=== PATIENT | female | born 1955 | race Caucasian/White ===

== ENCOUNTER → 2016-10-04 | Outpatient (CLI) | payer BC ==
[~2016-10-04] MED LIST: CALC-51 PO; CHOL100027 PO; CYAN500T PO; FAMO20TA9 PO; MULT-506 PO; OMEG10007 PO; PYRI50TA8 PO; ZOLE5INJ IV; vitamin b12 PO; vitamin b6 PO; vitamin d PO
== END | disposition home or self-care (01) ==
LOC: C.PAPS 15:27
PROVIDERS: ATTEND Obstetrics & Gynecology
DX: Z01.419 Encounter for gynecological examination (general) (routine) without abnormal findings (principal); Z11.51 Encounter for screening for human papillomavirus (HPV)

== ENCOUNTER → 2016-12-02 | Day surgery (SDC) | payer BC ==
[~2016-12-02] VITALS: Ht 165.1 cm; Wt 70.0 kg
[~2016-12-02] MED LIST changes: -CALC-51 PO; -CHOL100027 PO; -CYAN500T PO; -FAMO20TA9 PO; -PYRI50TA8 PO; -ZOLE5INJ IV; +ZOLEDRONIC ACID INJ 5 MG in EMPTY BAG 0 ML IV SCH
[2016-12-02 08:56] VITALS: BP 158/68; PULSE 64; TEMP 36.2; O2SAT 93; Ht 165.1 cm; Wt 70.0 kg
== END | disposition home or self-care (01) ==
LOC: C.MTU 08:41
PROVIDERS: ATTEND Internal Medicine
DX: M81.0 Age-related osteoporosis without current pathological fracture (principal)

== ENCOUNTER → 2017-02-03 | Outpatient (CLI) | payer BC ==
[~2017-02-03] MED LIST changes: -ZOLEDRONIC ACID INJ 5 MG in EMPTY BAG 0 ML IV SCH
--- NOTE | 2017-02-03 18:00 | DIAGNOSTIC IMAGING REPORT ---
ULTRASOUND RIGHT UPPER QUADRANT ABDOMEN CLINICAL HISTORY: Right upper quadrant abdominal pain. COMPARISON STUDY: Abdominal CT dated 08/22/2006. TECHNIQUE: Real-time, grayscale, and color flow sonography of the right upper quadrant of the abdomen was performed. Images are reviewed in the transverse and longitudinal planes. FINDINGS: Liver: The liver is normal in size and echotexture. There is no intrahepatic biliary ductal dilatation. The main portal vein is patent. Gallbladder: The gallbladder is normal in appearance. No gallstones are identified. There is no gallbladder wall thickening or pericholecystic fluid. A sonographic Lau's sign is reportedly absent. The common bile duct measures up to 0.3 cm in diameter. Pancreas: Visualized portions of the pancreatic head and body are normal in appearance. The splenic vein is patent. Right kidney: Survey images of the right kidney demonstrate normal size and echotexture. There is no hydronephrosis. A small extrarenal pelvis is incidentally noted. Ascites: None. IMPRESSION: Unremarkable sonographic assessment of the right upper quadrant. No gallstones are identified. Electronically signed by: Luis Manuel Patel M.D. 02/03/2017 5:59 PM Dictated Date/Time: 02/03/2017 5:57 PM
== END | disposition home or self-care (01) ==
LOC: C.ULTR 17:23
PROVIDERS: ATTEND Nurse Practitioner
DX: R10.11 Right upper quadrant pain (principal)

== ENCOUNTER → 2017-02-10 | Outpatient (CLI) | payer BC ==
[~2017-02-10] MED LIST changes: +SINCALIDE INJ 1.45 MCG in SODIUM CHLORIDE 0.9% 100ML 100 ML IV SCH
--- NOTE | 2017-02-10 12:36 | DIAGNOSTIC IMAGING REPORT ---
NUCLEAR MEDICINE HEPATOBILIARY SCAN WITH EJECTION FRACTION HISTORY: R10.11 Colicky RUQ abdominal pain with EJECTION [id number] COMPARISON: Abdominal ultrasound 02/03/2017. TECHNIQUE: Immediately following the intravenous administration of 5.3 mCi Tc-99m Choletec, dynamic anterior abdominal imaging pre/post 1.45 mcg of Kinevac was performed. FINDINGS: Uniform hepatic tracer accumulation is shown. Prompt intrahepatic biliary excretion is seen. The gallbladder, common bile duct, and small bowel are all visualized by 40 minutes. This appearance represents the normal sequence of biliary excretion. The gall bladder ejection fraction following administration of Kinevac was 82% (normal >35%). IMPRESSION: 1. No evidence for cystic duct obstruction. 2. Gallbladder ejection fraction calculated to be 82 %. Electronically signed by: David Soto M.D. 02/10/2017 12:35 PM Dictated Date/Time: 02/10/2017 12:34 PM
== END | disposition home or self-care (01) ==
LOC: C.NUCL 10:12
PROVIDERS: ATTEND Internal Medicine
DX: R10.11 Right upper quadrant pain (principal)

== ENCOUNTER → 2017-02-19 | Outpatient (CLI) | payer BC ==
[~2017-02-19] MED LIST changes: -SINCALIDE INJ 1.45 MCG in SODIUM CHLORIDE 0.9% 100ML 100 ML IV SCH
--- NOTE | 2017-02-19 13:15 | DIAGNOSTIC IMAGING REPORT ---
NUCLEAR GASTRIC EMPTYING STUDY CLINICAL HISTORY: Right upper quadrant abdominal pain. COMPARISON STUDY: Abdominal CT dated 08/22/2006. TECHNIQUE: Following the oral administration of 1.1 mCi of technetium 99m sulfur colloid in egg sandwich and 8 ounces of water, static abdominal images are obtained anteriorly and posteriorly at 0 minutes, 1 hour, 2 hour, and 4 hour time intervals. Gastric emptying was calculated utilizing the geometric mean method. FINDINGS: There is approximately 79% activity remaining at the 1 hour time interval, 19% remaining at the 2 hour time interval (normal is less than 60%), and 1% activity remaining at the 4 hour time interval (normal is less than 10%). IMPRESSION: Findings are consistent with normal gastric emptying for solids. Electronically signed by: Luis Manuel Patel M.D. 02/19/2017 1:14 PM Dictated Date/Time: 02/19/2017 1:13 PM
== END ==
LOC: C.NUCL 07:41
PROVIDERS: ATTEND Physician Assistant
DX: R10.11 Right upper quadrant pain (principal)

== ENCOUNTER 2017-04-16 19:24 | Emergency (ER) | payer BC ==
[~2017-04-16] VITALS: Ht 160 cm; Wt 72.8 kg
[2017-04-16 19:27] VITALS: TEMP 36.3; Ht 160 cm; Wt 72.8 kg
[2017-04-16] MEDS ORDERED: SODIUM CHLORIDE 0.9% 1000ML 1,000 ML IV STA (19:39)
[2017-04-16] MEDS ORDERED: ONDANSETRON INJ 2 MG/ML 2 ML VIAL IV STA (19:39)
[2017-04-16] MEDS ORDERED: CYAN500T PO (19:43)
[2017-04-16] MEDS ORDERED: CALC-51 PO (19:43)
[2017-04-16] MEDS ORDERED: PYRI50TA8 PO (19:43)
[2017-04-16] MEDS ORDERED: CHOL100027 PO (19:43)
[2017-04-16] MEDS ORDERED: FAMO20TA9 PO (19:43)
[2017-04-16] MEDS ORDERED: FENTANYL CITRATE INJ 50 MCG/1 ML 2 ML VIAL IV PRN (19:45)
[2017-04-16 19:54] LABS: BASO % 0.2 %; BASO ABS # 0.02 K/uL (0-0.2); COMPLETE YES; EOS % 2.1 %; HEMATOCRIT 44.8 % (37-47); IG% 0.2 %; LYMPH % 25.2 %; LYMPH ABS # 2.46 K/uL (1.2-3.4); MEAN CELL VOLUME 96.8 fL (80-100); MEAN CORPUSCULAR HEMOGLOBIN 33.9 pg (25-34); MEAN PLATELET VOLUME 10.3 fL (7.4-10.4); MONO % 7.2 %; NEUT % 65.1 %; PLATELET COUNT 210 K/uL (130-400); RED BLOOD COUNT 4.63 M/uL (4.2-5.4); WHITE BLOOD COUNT 9.78 K/uL (4.8-10.8)
[2017-04-16] MEDS ORDERED: ZOLE5INJ IV (19:56)
--- NOTE | 2017-04-16 20:08 | EMERGENCY ROOM VISIT NOTE ---
History Report prepared by Екатерина: Luciana Fu Under the Supervision of: Dr. Crow Cook D.O. First contact with patient: 19:33 Chief Complaint: ABDOMINAL PAIN Stated Complaint: BACK PAIN History of Present Illness The patient is a 61 year old female who presents to the Emergency Room with complaints of persistent RUQ abdominal pain starting 1230 today. The patient thinks she might be having problems with her gallbladder. She ate lunch today at 1130. At 1230 she started having RUQ pain. The pain is starting to ease now. 2-3 months ago, she had similar symptoms. She had testing for her gallbladder which was all negative. The pain goes around to her back. She feels bloated. She has had some vomiting and diarrhea. She denies any chest pain or hematuria. She has a history of acid reflux and tubal ligation. She denies any history of kidney stones. She denies any alcohol use. Source of History: patient Onset: 1230 Position: abdomen (RUQ) Quality: other (pain) Timing: other (persistent) Associated Symptoms: + vomiting, + back pain, + diarrhea, No chest pain, No urinary symptoms Note: Pt reports bloating. Review of Systems See HPI for pertinent positives & negatives. A total of 10 systems reviewed and were otherwise negative. Past Medical & Surgical Medical Problems: (1) Acid reflux Family History No pertinent family history stated. Social History Smoking Status: Former Smoker Marital Status: Occupation Status: employed Current/Historical Medications Scheduled Calcium Carbonate-Vitamin D (Calcium), 1 TAB PO DAILY Cholecalciferol (Vitamin D 1000 Unit), 1,000 INTER.UNIT PO DAILY Cyanocobalamin (Vitamin B-12), 1 TAB PO DAILY Famotidine (Pepcid), 20 MG PO BID Fish Oil ([place]-3), 1 CAP PO DAILY Multivitamin (Multivitamin), 1 TAB PO DAILY Pyridoxine Hcl (Vitamin B-6), 1 TAB PO DAILY Zoledronic Acid (Reclast), 5 MG IV YEARLY Allergies Coded Allergies: Penicillins (Verified Allergy, Unknown, hives, 12/02/16) Physical Exam Vital Signs Date Time Temp Pulse Resp B/P (MAP) Pulse Ox O2 Delivery O2 Flow Rate FiO2 04/16/17 23:29 68 16 124/74 98 Room Air 04/16/17 21:34 71 127/84 97 Room Air 04/16/17 19:27 36.3 89 18 169/95 97 Room Air Physical Exam GENERAL: Patient is awake, alert, somewhat anxious and uncomfortable appearing. EYES: The conjunctivae are clear. The pupils are round and reactive. EARS, NOSE, MOUTH AND THROAT: The nose is without any evidence of any deformity. Mucous membranes are moist tongue is midline NECK: The neck is nontender and supple. RESPIRATORY: Normal respiratory effort is noted there is no evidence of wheezing rhonchi or rales CARDIOVASCULAR: Regular rate and rhythm noted there no murmurs rubs or gallops normal S1 normal S2 GASTROINTESTINAL: The abdomen is soft. There was RUQ tenderness to palpation as well as epigastric tenderness to palpation. BACK: No midline tenderness or or step-off noted range of motion in flexion extension as well as rotation no signs of muscle spasm noted MUSCULOSKELETAL/EXTREMITIES: There is no evidence of gross deformity full range of motion is noted in the hips and shoulders SKIN: There is no obvious evidence of any rash. There are no petechiae, pallor or cyanosis noted. NEUROLOGIC: Patient is awake alert and oriented x3 Medical Decision & Procedures ER Provider Diagnostic Interpretation: X-ray results as stated below per interpretation by me and the radiologist. Radiology results as stated below per my review and radiologist interpretation: CHEST 1 VW FRONT-NOT PORTABLE, KUB HISTORY: 61 years-old Female ABD PAIN, NAUSEA acute generalized abdominal pain with nausea and diarrhea COMPARISON: Right upper quadrant ultrasound 04/16/2017, CT 08/22/2006 TECHNIQUE: AP view the chest with KUB radiograph FINDINGS: CHEST: Calcified left hilar lymph node and calcified granuloma of the left lower lobe redemonstrated. Atherosclerosis of the aorta. Cardiac silhouette is within normal limits. No pneumothorax, pleural effusion, focal airspace consolidation or overt pulmonary edema. Bones of the chest appear grossly intact. KUB: Bowel gas pattern is nonobstructive. No organomegaly, urolith or fracture identified. IMPRESSION: 1. Prior granulomatous disease without acute cardiopulmonary process. 2. Nonobstructive bowel gas pattern. The above report was generated using voice recognition software. It may contain grammatical, syntax or spelling errors. Electronically signed by: Kenneth Jamison M.D. 04/16/2017 9:37 PM Dictated Date/Time: 04/16/2017 9:34 PM GALLBLADDER-ABD LIMITED HISTORY: 61 years-old Female ABDOMINAL PAIN/GI acute generalized abdominal pain COMPARISON: Hepatobiliary study 02/10/2017, right upper quadrant ultrasound 02/03/2017 TECHNIQUE: Multiple real-time sonographic images of the abdominal right upper quadrant were obtained assessing grayscale appearance and color flow FINDINGS: The pancreas is unremarkable with distal body and tail obscured by bowel gas. The liver is unremarkable without focal mass or intrahepatic biliary ductal dilation. Common bile duct is normal, 5 mm. Gallbladder is contracted. No shadowing cholelithiasis or gallbladder sludge. Sonographic Lau sign was unable to be obtained secondary to recent pain medication administration. The right kidney is unremarkable without hydronephrosis or renal calculi. IMPRESSION: 1. Contracted gallbladder without shadowing cholelithiasis or evidence of acute cholecystitis. 2. No biliary ductal dilation. The above report was generated using voice recognition software. It may contain grammatical, syntax or spelling errors. Electronically signed by: Kenneth Jamison M.D. 04/16/2017 9:18 PM Dictated Date/Time: 04/16/2017 9:15 PM Laboratory Results 04/16/17 19:40 Red Blood Count 4.63, Mean Corpuscular Volume 96.8, Mean Corpuscular Hemoglobin 33.9, Mean Corpuscular Hemoglobin Concent 35.0, Mean Platelet Volume 10.3, Neutrophils (%) (Auto) 65.1, Lymphocytes (%) (Auto) 25.2, Monocytes (%) (Auto) 7.2, Eosinophils (%) (Auto) 2.1, Basophils (%) (Auto) 0.2, Neutrophils # (Auto) 6.37, Lymphocytes # (Auto) 2.46, Monocytes # (Auto) 0.70, Eosinophils # (Auto) 0.21, Basophils # (Auto) 0.02 04/16/17 19:40 Test 04/16/17 19:40 White Blood Count 9.78 K/uL (4.8-10.8) Red Blood Count 4.63 M/uL (4.2-5.4) Hemoglobin 15.7 g/dL (12.0-16.0) Hematocrit 44.8 % (37-47) Mean Corpuscular Volume 96.8 fL (80-100) Mean Corpuscular Hemoglobin 33.9 pg (25-34) Mean Corpuscular Hemoglobin Concent 35.0 g/dl (32-36) Platelet Count 210 K/uL (130-400) Mean Platelet Volume 10.3 fL (7.4-10.4) Neutrophils (%) (Auto) 65.1 % Lymphocytes (%) (Auto) 25.2 % Monocytes (%) (Auto) 7.2 % Eosinophils (%) (Auto) 2.1 % Basophils (%) (Auto) 0.2 % Neutrophils # (Auto) 6.37 K/uL (1.4-6.5) Lymphocytes # (Auto) 2.46 K/uL (1.2-3.4) Monocytes # (Auto) 0.70 K/uL (0.11-0.59) Eosinophils # (Auto) 0.21 K/uL (0-0.5) Basophils # (Auto) 0.02 K/uL (0-0.2) RDW Standard Deviation 47.7 fL (36.4-46.3) RDW Coefficient of Variation 13.5 % (11.5-14.5) Immature Granulocyte % (Auto) 0.2 % Immature Granulocyte # (Auto) 0.02 K/uL (0.00-0.02) Urine Color YELLOW Urine Appearance CLEAR (CLEAR) Urine pH 5.5 (4.5-7.5) Urine Specific Gordon 1.014 (1.000-1.030) Urine Protein NEG (NEG) Urine Glucose (UA) NEG (NEG) Urine Ketones TRACE (NEG) Urine Occult Blood NEG (NEG) Urine Nitrite NEG (NEG) Urine Bilirubin NEG (NEG) Urine Urobilinogen NEG (NEG) Urine Leukocyte Esterase TRACE (NEG) Urine WBC (Auto) 1-5 /hpf (0-5) Urine RBC (Auto) 0-4 /hpf (0-4) Urine Hyaline Casts (Auto) 0 /lpf (0-5) Urine Epithelial Cells (Auto) 10-20 /lpf (0-5) Urine Bacteria (Auto) NEG (NEG) Anion Gap 7.0 mmol/L (3-11) Est Creatinine Clear Calc Drug Dose 54.5 ml/min Estimated GFR () 66.9 Estimated GFR (Non- 57.7 BUN/Creatinine Ratio 33.4 (10-20) Calcium Level 8.8 mg/dl (8.5-10.1) Total Bilirubin 0.3 mg/dl (0.2-1) Direct Bilirubin < 0.1 mg/dl (0-0.2) Aspartate Amino Transf (AST/SGOT) 44 U/L (15-37) Alanine Aminotransferase (ALT/SGPT) 38 U/L (12-78) Alkaline Phosphatase 44 U/L (45-117) Total Protein 8.1 gm/dl (6.4-8.2) Albumin 4.1 gm/dl (3.4-5.0) Lipase 250 U/L (73-393) Laboratory results per my review. Medications Administered Medications (Trade) Dose Ordered Sig/Toni Route Start Time Stop Time Status Last Admin Dose Admin Fentanyl Citrate (Fentanyl Inj) 50 mcg Q20M PRN IV 04/16/17 19:45 04/17/17 00:16 DC 04/16/17 19:55 50 MCG Sodium Chloride 1,000 ml @ 999 mls/hr Q1H1M STAT IV 04/16/17 19:39 04/16/17 20:39 DC 04/16/17 19:55 999 MLS/HR Ondansetron HCl (Zofran Inj) 4 mg NOW STAT IV 04/16/17 19:39 04/16/17 19:40 DC 04/16/17 19:54 4 MG Oxycodone HCl (Roxicodone Immediate Rel 5MG Home Pack) 1 homepack UD ONCE PO 04/16/17 23:15 04/16/17 23:16 DC 04/16/17 23:29 1 HOMEPACK Ondansetron HCl (ZOFRAN ODT 4MG Home Pack) 1 homepack UD ONCE PO 04/16/17 23:15 04/16/17 23:16 DC 04/16/17 23:28 1 HOMEPACK ED Course 1936: The patient was evaluated in room C7. A complete history and physical examination were performed. 1938: Zofran Inj 4 mg IV, NSS 1000 ml @ 999 mls/hr IV. 1944: Fentanyl Inj 50 mcg IV. 2256: Upon reevaluation, the patient is resting comfortably. I discussed the results and treatment plan with her. I offered her admission, but she declined. She verbalized agreement of the treatment plan. She was discharged home. 2314: Ondansetron HCl 1 homepack PO, Oxycodone HCl 1 homepack PO. Medical Decision Prior records/ancillary studies reviewed. Triage Nursing notes reviewed. Additional history obtained from [facility]. The patient's history was concerning for abdominal pain. Differential diagnosis: Etiologies such as appendicitis, diverticulitis, PUD, biliary pathology, UTI, pancreatitis, obstruction, mesenteric ischemia, aortic pathology, infections, inflammatory bowel disease, renal colic, as well as others were entertained. The patient is a 61-year-old female who presented to the emergency department for right upper quadrant abdominal pain. The patient has had similar symptoms in the past. She's had a workup with her primary care physician which did not reveal cause but she had an ultrasound as well as laboratory studies as well as a HIDA scan which did not show any other abnormalities. I discussed the patient' s laboratory and radiographic studies with her. She was treated with IV fluids IV pain medicine and IV antiemetics. On subsequent reevaluation she was somewhat improved. The patient was very concerned that this still could be her gallbladder. She states that she has a sibling who had problems with her gallbladder and no radiographic or laboratory studies identified the cause of the problem until she had her gallbladder removed. I told her that this is a possibility. For this reason she was given follow-up information for the on- call general surgeon. She was encouraged to avoid any fatty fried or spicy foods. She was also encouraged to return to the emergency Department immediately if symptoms change worsen or the need arises. Otherwise she was encouraged to follow-up with her primary care physician or the general surgeon for further evaluation. Medication Reconcilliation Current Medication List: was personally reviewed by me Blood Pressure Screening Patient's blood pressure: Normal blood pressure Blood pressure disposition: Did not require urgent referral Impression Primary Impression: RUQ abdominal pain Scribe Attestation The scribe's documentation has been prepared under my direction and personally reviewed by me in its entirety. I confirm that the note above accurately reflects all work, treatment, procedures, and medical decision making performed by me. Departure Information Dispostion Home / Self-Care Referrals Jim Gautam M.D. (PCP) Edilson Castano M.D. Forms Call Back Authorization, HOME CARE DOCUMENTATION FORM, IMPORTANT VISIT INFORMATION Patient Instructions ED Abdominal Pain Unkn Cause, [facility] Additional Instructions Call your family as well as the on-call general surgeon in the morning to schedule a follow-up appointment. Rest and avoid any strenuous activity. Drink plenty clear liquids. Return to the emergency apartment immediately if symptoms change worsen or the need arises.
[2017-04-16 20:11] LABS: ALT/SGPT 38 U/L (12-78); AST/SGOT 44 U/L (15-37); BLOOD UREA NITROGEN 35 mg/dl (7-18); BUN/CREATININE RATIO 33.4 (10-20); CALCIUM 8.8 mg/dl (8.5-10.1); CARBON DIOXIDE 24 mmol/L (21-32); CHLORIDE 106 mmol/L (98-107); CREATININE 1.05 mg/dl (0.60-1.20); GLUCOSE 85 mg/dl (70-99); POTASSIUM 3.7 mmol/L (3.5-5.1); SODIUM 137 mmol/L (136-145)
[2017-04-16 20:14] LABS: ALKALINE PHOSPHATASE 44 U/L (45-117)
--- NOTE | 2017-04-16 21:19 | DIAGNOSTIC IMAGING REPORT ---
GALLBLADDER-ABD LIMITED HISTORY: 61 years-old Female ABDOMINAL PAIN/GI acute generalized abdominal pain COMPARISON: Hepatobiliary study 02/10/2017, right upper quadrant ultrasound 02/03/2017 TECHNIQUE: Multiple real-time sonographic images of the abdominal right upper quadrant were obtained assessing grayscale appearance and color flow FINDINGS: The pancreas is unremarkable with distal body and tail obscured by bowel gas. The liver is unremarkable without focal mass or intrahepatic biliary ductal dilation. Common bile duct is normal, 5 mm. Gallbladder is contracted. No shadowing cholelithiasis or gallbladder sludge. Sonographic Lau sign was unable to be obtained secondary to recent pain medication administration. The right kidney is unremarkable without hydronephrosis or renal calculi. IMPRESSION: 1. Contracted gallbladder without shadowing cholelithiasis or evidence of acute cholecystitis. 2. No biliary ductal dilation. The above report was generated using voice recognition software. It may contain grammatical, syntax or spelling errors. Electronically signed by: Kenneth Jamison M.D. 04/16/2017 9:18 PM Dictated Date/Time: 04/16/2017 9:15 PM
--- NOTE | 2017-04-16 21:39 | DIAGNOSTIC IMAGING REPORT ---
CHEST 1 VW FRONT-NOT PORTABLE, KUB HISTORY: 61 years-old Female ABD PAIN, NAUSEA acute generalized abdominal pain with nausea and diarrhea COMPARISON: Right upper quadrant ultrasound 04/16/2017, CT 08/22/2006 TECHNIQUE: AP view the chest with KUB radiograph FINDINGS: CHEST: Calcified left hilar lymph node and calcified granuloma of the left lower lobe redemonstrated. Atherosclerosis of the aorta. Cardiac silhouette is within normal limits. No pneumothorax, pleural effusion, focal airspace consolidation or overt pulmonary edema. Bones of the chest appear grossly intact. KUB: Bowel gas pattern is nonobstructive. No organomegaly, urolith or fracture identified. IMPRESSION: 1. Prior granulomatous disease without acute cardiopulmonary process. 2. Nonobstructive bowel gas pattern. The above report was generated using voice recognition software. It may contain grammatical, syntax or spelling errors. Electronically signed by: Kenneth Jamison M.D. 04/16/2017 9:37 PM Dictated Date/Time: 04/16/2017 9:34 PM
[2017-04-16 22:48] LABS: URINE APPEARANCE CLEAR (CLEAR); URINE BILIRUBIN NEG (NEG); URINE COLOR YELLOW; URINE NITRITE NEG (NEG); URINE PH 5.5 (4.5-7.5); URINE SPECIFIC GRAVITY 1.014 (1.000-1.030); UROBILINOGEN NEG (NEG)
[2017-04-16 22:49] LABS: MANUAL MICROSCOPIC REQUIRED? NO; REVIEW REQ? NO
[2017-04-16] MEDS ORDERED: OXYCODONE IR HOME PACK PO ONE (23:15)
[2017-04-16] MEDS ORDERED: ONDANSETRON HOME PACK 4MG OD TAB PO ONE (23:15)
[2017-04-16 23:29] VITALS: BP 124/74; PULSE 68; O2SAT 98
== END 2017-04-16 23:35 | disposition home or self-care (01) ==
LOC: C.EDB 19:25 → C.EDC 23:35
DX: R10.11 Right upper quadrant pain (principal); R11.10 Vomiting, unspecified; R19.7 Diarrhea, unspecified; K21.9 Gastro-esophageal reflux disease without esophagitis; Z87.891 Personal history of nicotine dependence; Z98.51 Tubal ligation status; Z79.899 Other long term (current) drug therapy

== ENCOUNTER → 2017-04-24 | Outpatient (CLI) | payer BC ==
[~2017-04-24] MED LIST changes: +CALC-51 PO; +CHOL100027 PO; +CYAN500T PO; +FAMO20TA9 PO; +OPTIRAY 320 IV PRN; +PYRI50TA8 PO; +ZOLE5INJ IV; -vitamin b12 PO; -vitamin b6 PO; -vitamin d PO
--- NOTE | 2017-04-24 10:44 | DIAGNOSTIC IMAGING REPORT ---
ABD/PELVIS COMBO WITH ORAL CLINICAL HISTORY: K21.9 GERD without [id number] Colicky RUQ abdominal painR pain. Nausea. TECHNIQUE: Pre and postcontrast transaxial images of the abdomen and pelvis with three-dimensional reconstructions. COMPARISON STUDY: None FINDINGS: Lung bases are considered clear. Several calcified granulomas the lung bases are present. This is considered a benign finding. Small hiatal hernia. Urinary tracts are negative for an obstructing calcification. Bladder is midline. The enhanced component of the study demonstrates uniform enhancement of the liver. Gallbladder is negative for distention. Pancreas is uniform throughout. Kidneys negative for mass or hydronephrosis. Bowel pattern otherwise indicates an increased fecal load throughout the colon consistent with a component of fecal stasis. There are no true obstructive characteristics. Bladder is midline. Inguinal regions are unremarkable. There is no free fluid within the pelvic cul-de-sac. IMPRESSION: 1. Small hiatal hernia. 2. Increased fecal load throughout the entire colon consistent with fecal stasis. 3. Study is otherwise negative. The above report was generated using voice recognition software. It may contain grammatical, syntax or spelling errors. Electronically signed by: Erik Epperson M.D. 04/24/2017 10:42 AM Dictated Date/Time: 04/24/2017 10:38 AM
== END | disposition home or self-care (01) ==
LOC: C.CTS 10:06
PROVIDERS: ATTEND Surgery
DX: K21.9 Gastro-esophageal reflux disease without esophagitis (principal); R10.11 Right upper quadrant pain; K44.9 Diaphragmatic hernia without obstruction or gangrene

== ENCOUNTER → 2017-05-05 | Outpatient (CLI) | payer BC ==
[~2017-05-05] MED LIST changes: +ACET-1256 PO; +HYDR-5688 PO; -OPTIRAY 320 IV PRN; +PSYL48.59 PO; +VITAMIN B6 PO
== END | disposition home or self-care (01) ==
LOC: C.LAB 08:22
PROVIDERS: ATTEND Surgery
DX: R10.11 Right upper quadrant pain (principal)

== ENCOUNTER 2017-05-22 09:57 | Day surgery (SDC) | payer BC, OTHER ==
[2017-05-05 08:42] VITALS: BMI 28.0
--- NOTE | 2017-05-05 09:09 | PAT Medication Instructions ---
Service Date May 05, 2017. Current Home Medication List Acetaminophen (Tylenol), 1,000 MG PO PRN Calcium Carbonate-Vitamin D (Calcium), 1 TAB PO QPM Cholecalciferol (Vitamin D 1000 Unit), 1,000 INTER.UNIT PO QAM Cyanocobalamin (Vitamin B-12), 1 TAB PO QAM Famotidine (Pepcid), 20 MG PO QAM Fish Oil ([place]-3), 1 CAP PO QAM Multivitamin (Multivitamin), 1 TAB PO QAM Psyllium (Metamucil), 1 DOSE PO QAM Zoledronic Acid (Reclast), 5 MG IV YEARLY [Vitamin B6], 1 TAB PO QAM Medication Instructions For Your Scheduled Surgery Zoledronic Acid (Reclast), 5 MG IV YEARLY (continue as directed) - Hold the following medications 2 weeks prior to surgery: Fish Oil ([place]-3), 1 CAP PO QAM - Hold the following medications the morning of surgery: Multivitamin (Multivitamin), 1 TAB PO QAM Psyllium (Metamucil), 1 DOSE PO QAM [Vitamin B6], 1 TAB PO QAM Famotidine (Pepcid), 20 MG PO QAM Cyanocobalamin (Vitamin B-12), 1 TAB PO QAM Cholecalciferol (Vitamin D 1000 Unit), 1,000 INTER.UNIT PO QAM - Take the following medications the morning of surgery with a sip of water: Acetaminophen (Tylenol), 1,000 MG PO PRN (okay to take up to 4 hours prior to surgery if needed) - Take the following medications as scheduled the night before surgery: Acetaminophen (Tylenol), 1,000 MG PO PRN (if needed) Calcium Carbonate-Vitamin D (Calcium), 1 TAB PO QPM If you have any questions please call us at [phone] or [phone] or [phone]
[~2017-05-22] VITALS: Ht 160 cm; Wt 72.7 kg
[~2017-05-22 09:57] MED LIST changes: +ACETAMINOPHEN 1000 MG/100 ML IV IV ONE; +CLINDAMYCIN 600 MG/54 ML D5W IV SCH; -HYDR-5688 PO; +LACTATED RINGER'S 1000ML 1,000 ML IV SCH; -PYRI50TA8 PO
[2017-05-22 10:15] VITALS: BP 155/71; PULSE 73; TEMP 36.6; O2SAT 98; Ht 160 cm; Wt 72.7 kg
[2017-05-22] MEDS ORDERED: ATROPINE SULFATE 0.1 MG/ML 5ML SYR IV PRN (12:45)
[2017-05-22] MEDS ORDERED: PROMETHAZINE HCL INJ 6.25 MG in SODIUM CHLORIDE 0.9% 50ML 50 ML IV PRN (12:45)
[2017-05-22] MEDS ORDERED: EpHEDrine SULFATE INJ 50 MG/ML AMP IV PRN (12:45)
[2017-05-22] MEDS ORDERED: ONDANSETRON INJ 2 MG/ML 2 ML VIAL IV PRN ×2 (12:45→15:00)
--- NOTE | 2017-05-22 12:49 | History & Physical Bridge Note ---
H&P Re-Evaluation Bridge Note: I have examined the patient, reviewed the History & Physical and in the interval since the performance of the History & Physical I have noted the following changes of clinical significance: No changes noted
[2017-05-22] MEDS ORDERED: NEOSTIGMINE METHYLSULFATE 5 MG/5 ML SYR ONE (13:07)
[2017-05-22] MEDS ORDERED: FENTANYL CITRATE INJ 50 MCG/1 ML 2 ML VIAL ONE ×2 (13:07→14:18)
[2017-05-22] MEDS ORDERED: PROPOFOL IV EMULSION 10 MG/ML 20 ML VIAL IV ONE (13:07)
[2017-05-22] MEDS ORDERED: DEXAMETHASONE SOD INJ 4 MG/ML VIAL ONE (13:07)
[2017-05-22] MEDS ORDERED: LIDOCAINE HCL 2% 2 ML VIAL (20MG/ML) ONE (13:07)
[2017-05-22] MEDS ORDERED: MIDAZOLAM HCL 1 MG/ML 2ML VIAL ONE (13:07)
[2017-05-22] MEDS ORDERED: ONDANSETRON INJ 2 MG/ML 2 ML VIAL ONE (13:07)
[2017-05-22] MEDS ORDERED: GLYCOPYRROLATE INJ 0.2 MG/ML VIAL ONE (13:07)
[2017-05-22] MEDS ORDERED: EpINEphrine INJ 1MG/ML AMP 1 MG/ML AMP ONE ×2 (13:12→13:26)
[2017-05-22] MEDS ORDERED: BUPIVACAINE 0.5 % 5 MG/1 ML MPF 30ML VIAL ONE (13:12)
[2017-05-22] MEDS ORDERED: HYDR-5688 PO (13:20)
--- NOTE | 2017-05-22 13:24 | Discharge Instructions ---
Discharge Instructions Date of Service May 22, 2017. Visit Reason for Visit: Hiatal Hernia, Biliary Dyskinesia Discharge Discharge Diagnosis / Problem: laparoscopic cholecystectomy, hiatal hernia repair Discharge Goals Goal(s): Decrease discomfort Activity Recommendations Activity Limitations: as noted below Shower/Bathe: no limitations Anesthesia . Post Anesthesia Instructions: If you have had General Anesthesia or IV Sedation: * Do not drive today. * Resume driving when surgeon permits. * Do not make important decisions or sign legal documents today. * Call surgeon for: 1. Temperature elevations greater than 101 degrees F. 2. Uncontrollable pain. 3. Excessive bleeding. 4. Persistent nausea and vomiting. 5. Medication intolerance (nausea, vomiting or rash). * For nausea and vomiting use only clear liquids such as: tea, soda, bouillon until nausea subsides, then gradually increase diet as tolerated. * If you have any concerns or questions, call your surgeon's office. If physician is unavailable and it is an emergency, call 911 or go to the nearest emergency room. . Diet Recommendations Recommended Home Diet: special diet Additional Diet Information: liquid or soft diet, things that can be eaten with a spoon Pending Studies Studies pending at discharge: yes List of pending studies: pathology Medical Emergencies . Who to Call and When: Medical Emergencies: If at any time you feel your situation is an emergency, please call 911 immediately. . Non-Emergent Contact Non-Emergency issues call your: Surgeon Call Non-Emergent contact if: you have a fever, temperature is above 101.5, your pain is not controlled, wound has increased pain, you have any medication questions . . "Provider Documentation" section prepared by Antelmo Lee. .
[2017-05-22] MEDS ORDERED: LACTATED RINGER'S 1000ML 1,000 ML IV SCH (14:58)
[2017-05-22] MEDS ORDERED: HYDROCODONE/ACETAMOPHEN 5/325MG TAB PO PRN (15:00)
[2017-05-22] MEDS ORDERED: MoRPHine SULFATE 4 MG/ML 1 ML CARP\\VIAL IV PRN (15:00)
--- NOTE | 2017-05-22 15:02 | [facility] Post Operative Brief Note ---
Immediate Operative Summary Operative Date May 22, 2017. Pre-Operative Diagnosis Hiatal hernia; biliary dyskinesia Post-Operative Diagnosis Same as preop Procedure(s) Performed Laparoscopic hiatal hernia repair; laparoscopic cholecystectomy Surgeon Dr. Barnes Lead Project Engineer Surgeon(s) Jayme Ramsey PA-C Estimated Blood Loss 10 cc Findings moderate sized hiatal hernia with gastric incarceration; normal anatomy otherwise Specimens A: gallbladder Anesthesia get Complication(s) None Disposition Recovery Room / PACU
[2017-05-22] MEDS: FENTANYL CITRATE INJ 50 MCG/1 ML 2 ML VIAL IV PRN ×2 (15:11→15:16)
--- NOTE | 2017-05-22 15:12 | [facility] Operative Report ---
Operative Report Operative Date May 22, 2017. Pre-Operative Diagnosis Hiatal hernia; biliary dyskinesia Post-Operative Diagnosis Same as preop Procedure(s) Performed Laparoscopic hiatal hernia repair; laparoscopic cholecystectomy Surgeon Dr. Barnes [facility] Administrator Surgeon(s) Jayme Ramsey PA-C Estimated Blood Loss 10 cc Findings moderate sized hiatal hernia; normal appearing anatomy otherwise. Specimens A: gallbladder Anesthesia get Complication(s) None Disposition Recovery Room / PACU Description of Procedure After informed consent was obtained the patient was taken to the operating room and placed in supine position. After successful intubation the abdomen was sterilely prepped and draped in usual fashion. A supraumbilical incision was made with an 11 Blade scalpel and carried down through the soft tissue using electrocautery. Anterior rectus fascia was opened using electrocautery and 2 # 0 Vicryl stay sutures were placed. Peritoneum was elevated with hemostats and incised under direct vision using a Metzenbaum scissor. A finger sweep was performed and a 12 mm Stark trocar was placed. The abdomen was insufflated to 18 mmHg. Laparoscope was inserted and the abdomen examined 360. A subxiphoid 12 mm port and 2 right upper quadrant 5 mm ports were originally placed. Later in the case a left upper quadrant and left mid abdomen 5 mm trochars were also placed. The patient was placed in a reverse Trendelenburg position. We began by removing the gallbladder. Adhesions around the gallbladder were taken down using blunt dissection. The cystic duct was identified and skeletonized with a [place] dissector. It was clipped twice proximally once distally and transected with a laparoscopic scissor. In similar fashion the cystic artery was identified skeletonized clipped and divided. The gallbladder was removed from the gallbladder fossa using electrocautery. It was removed intact and placed into an Endo Catch bag and removed from the camera port site. Several small bleeding points on the gallbladder fossa were controlled using electrocautery. Irrigation was performed. At the end of the procedure there was adequate hemostasis and no evidence of any bile leaks. Attention then turned to the hiatal hernia. We placed some additional trochars on left side of the abdomen and used a liver retractor to elevate the left lobe of the liver. There was an obvious probably 5-6 cm hernia. The stomach was incarcerated but was readily reducible. I began along the right theresa the diaphragm and using the Harmonic scalpel took down the gastrohepatic ligament. I followed the right theresa the diaphragm superiorly and anteriorly over top of the esophagus and down over to the left theresa. We used traction and small amounts of Harmonic to take down the hernia sac in 360. This allowed the stomach to remain in the abdomen without any tension upon it. I then used 0 silk stitches with the Endo Stitch device to primarily close the hiatal hernia. Once we did this we were able stick graspers between the esophagus and the repair to ensure there was not too tight. There was adequate hemostasis at the end of this. Thorough irrigation was performed of the upper abdomen. No other abnormalities were identified. The trochars were all removed and the abdomen was desufflated. The fascia of the camera port was closed using 0 Vicryl figure 8 fashion. All wounds were irrigated and closed using 4-0 Monocryl. Marcaine was injected around for postoperative analgesia My physician's kindergarten teacher assistant was present throughout the entire procedure. He helped prepped the patient as well as help with port placement. He help run the camera as well as liver retractor throughout the case. He also helped with wound closure and dressing placement at the end of the case I attest to the content of the Intraoperative Record and any orders documented therein. Any exceptions are noted below.
--- NOTE | 2017-05-22 15:48 | Anesthesiology Progress Note ---
Anesthesia Post Op Note Date & Time May 22, 2017 at 15:48 Vital Signs Pain Intensity: 2 Vital Signs Past 12 Hours Date Time Temp Pulse Resp B/P (MAP) Pulse Ox O2 Delivery O2 Flow Rate FiO2 05/22/17 15:43 36.4 05/22/17 15:35 75 16 160/78 92 Room Air 05/22/17 15:25 84 16 162/89 93 Room Air 05/22/17 15:15 77 16 167/89 97 Oxymask 10 05/22/17 15:06 36.9 99 16 170/97 100 Oxymask 10 05/22/17 10:15 36.6 73 18 155/71 (99) 98 Room Air Notes Mental Status: alert / awake / arousable, participated in evaluation Pt Amnestic to Procedure: Yes Nausea / Vomiting: adequately controlled Pain: adequately controlled Airway Patency, RR, SpO2: stable & adequate BP & HR: stable & adequate Hydration State: stable & adequate Anesthetic Complications: no major complications apparent
[2017-05-22 15:50] VITALS: BP 172/79; PULSE 66; TEMP 36.7; O2SAT 92
[2017-05-22 16:25] VITALS: BP 149/69; PULSE 76; O2SAT 94
[2017-05-22 16:55] VITALS: BP 156/76; PULSE 72; TEMP 36.9; O2SAT 95
[2017-05-22 17:25] VITALS: BP 138/63; PULSE 83; TEMP 36.4; O2SAT 94
== END 2017-05-22 17:43 | disposition home or self-care (01) ==
LOC: C.ACU 09:57
PROVIDERS: ATTEND Surgery
DX: K82.8 Other specified diseases of gallbladder (principal); K44.9 Diaphragmatic hernia without obstruction or gangrene; M81.0 Age-related osteoporosis without current pathological fracture; K21.9 Gastro-esophageal reflux disease without esophagitis; E55.9 Vitamin D deficiency, unspecified; Z87.891 Personal history of nicotine dependence; Z80.3 Family history of malignant neoplasm of breast

== ENCOUNTER 2019-09-14 17:30 | Inpatient (IN) ==
[2019-09-14] MEDS ORDERED: HYDROmorphone INJ 0.5 MG/0.5 ML SYR IV PRN ×2 (17:54→21:38)
[2019-09-14] MEDS ORDERED: LACTATED RINGER'S 1,000 ML IV SCH (18:00)
--- NOTE | 2019-09-14 18:01 | Emergency Department Note ---
Impression & Plan Closed right femoral fracture ED Provider Note NAME: CARLI HODGE AGE: 64 SEX: F ARRIVES VIA: Ambulance INFORMANT: [Patient] ED PROVIDER(S): Yaw Bhat MD CHIEF COMPLAINT: Right leg pain PLAN: Disposition: Admitted Condition: [Good] MEDICAL DECISION MAKING: Patient presented to the ER with a injury to the right femur concerning for fracture. EMS noted angulation. The patient was placed in traction by EMS. She was given fentanyl prehospital and additional Dilaudid here. She suffered no other traumatic injury. Blood work and imaging were performed. Consultation was made with orthopedics. Patient was evaluated by orthopedics in the ER and admitted. Triage Nursing notes reviewed and agree them. [Additional history obtained from] EMS Vital Signs: reviewed and remarkable for [no significant abnormalities] Differential diagnosis: Fracture, subluxation, dislocation, contusion, ligamentous injury, neurovascular, compartment syndrome, rhabdomyolysis, as well as other pathologies. ER treatment provided: IV Dilaudid Traction splint Diagnostics interpreted by me: ECG: Rate: 79 Rhythm:Normal sinus [place]:Normal QRS:Normal ST segements:No elevation or depression Other:No PACs or PVCs Cardiac Monitoring: Cardiac monitoring ordered by me: The patient was placed on continuous cardiac monitoring and observed. It revealed a normal sinus rhythm at 76 beats per minute without ectopy or evidence of dysrhythmia. Laboratory studies: [See below] slight leukocytosis on CBC. Chemistry panel unremarkable. Imaging studies: Imaging studies: Chest x-ray. Findings: A chest x-ray was performed and revealed no pneumothorax, effusion, infiltrate, pulmonary edema, free air under the diaphragm, or wide mediastinum. Impression: No acute disease. Examination of the right femur reveals a midshaft fracture. Closed. Displaced. Consultation(s): Consultation placed with [facility] orthopedics. Dr. Tan. He evaluated the patient in the ER and admitted her. HPI: The patient is a 61 year old female who presents to the Emergency Room with complaints of right leg pain. This started about 3 hours ago and is worsening. The patient also notes the following associated symptoms, none. Patient was mowing grass and slipped on a hill. She landed on the right leg. She was unable to walk due to severe pain. The patient has been given fentanyl and Zofran by EMS for relieving factors. Current pain is rated as 6/10. Patient denies any other injury. Pt denies LOC, headache, visual changes, neck pain, chest pain, breathing difficulties, nausea, vomiting, abdominal pain, back pain, other extremity pain, numbness, weakness, open wounds, active bleeding, or other complaints. ROS: See above HPI for pertinent positives & negatives. A total of [10] systems reviewed and were otherwise negative. PAST MEDICAL HISTORY:[See Below] osteoporosis PAST SURGICAL HISTORY:[See Below] FAMILY HISTORY:[See Below] SOCIAL HISTORY:[See Below] HOME MEDICATIONS:[See Below] ALLERGIES:[See Below] VITALS:[See Below] PHYSICAL EXAMINATION: GENERAL: Awake, alert, very-appearing, in no distress HENT: Normocephalic, atraumatic. Oropharynx unremarkable. EYES: Normal conjunctiva. Sclera non-icteric. NECK: Inspection normal. Non-tender. Supple. No nuchal rigidity. FROM. No mas ses. RESPIRATORY: Clear to auscultation. No wheezes. No rales. Normal respiratory effort. CARDIAC: Normal rate. Normal rhythm. No murmurs. No rubs. Extremities warm and well perfused. Pulses equal. No JVD. GI: Soft, non-distended. No tenderness to palpation. No rebound or guarding. No masses. RECTAL: Deferred. MUSCULOSKELETAL: Atraumatic. Chest examination reveals no tenderness. The back is symmetrical on inspection without obvious abnormality. There is no CVA tenderness to palpation. No joint edema. LOWER EXTREMITIES: Calves are equal size bilaterally and non-tender. No edema. No discoloration. There is moderate tenderness to palpation of the right distal femur, approximately just past midpoint. No open wounds. No hip tenderness. Range of motion limited secondary to pain. The knee and lower right leg are atraumatic. NEURO: Normal sensorium. No sensory or motor deficits noted. SKIN: No rash or jaundice noted. ED COURSE: [Critical Care:] [None] Yaw Bhat MD Past Med/Surg History Medical History (Updated 09/14/19 @ 17:58 by Yaw Bhat MD) Colicky RUQ abdominal pain GERD without esophagitis (Acute) Herpes zoster without complication Hiatal hernia (Acute) Osteoporosis Postherpetic neuralgia (Acute) Postmenopausal atrophic vaginitis (Acute) Vertigo (Acute) Vitamin D deficiency (Acute) Surgical History (Updated 08/13/19 @ 11:11 by Lorraine Valadez) H/O hernia repair paraesophageal hiatal History of bilateral tubal ligation History of bladder surgery History of cholecystectomy History of colonoscopy History of endoscopic sinus surgery History of Phillip fundoplication Status post myringotomy with insertion of tube RIGHT EAR Family History (Updated 08/13/19 @ 11:12 by Lorraine Valadez) Other Breast cancer Coronary heart disease Diabetes Denies family history of Ovarian cancer Social History (Updated 08/13/19 @ 11:13 by Lorraine Valadez) Preferred Language: Kenyan Communication Ability: Effective Beader Required: No Beliefs That Will Affect Care: None Current Living Situation: Spouse Feels Safe at Home: Yes Safety Concerns: Feels Safe At This Time Smoking Status: Former smoker Tobacco Type: cigarettes ; Cigarettes Per Day: QUIT 12 YEARS AGO. HX OF OCC SOCIAL USE ; Do You Dip or Chew Tobacco: No ; Second Hand Exposure: No ; Tobacco Cessation Education Requested by Patient: No Hx Alcohol Use: No Hx Substance Use: No Allergies Allergies Allergy/AdvReac Type Severity Reaction Status Date / Time Penicillins Allergy Unknown hives Verified 09/14/19 19:01 Home Meds Home Medications Medication Instructions Recorded Confirmed calcium carbonate-vitamin D3 1 tab PO QPM 07/03/18 09/14/19 [Calcium 500 + D] cholecalciferol (vitamin D3) 1,000 unit PO QAM 07/03/18 09/14/19 [Vitamin D3] cyanocobalamin (vitamin B-12) 1,000 mcg PO QAM 07/03/18 09/14/19 multivitamin 1 cap PO QAM 07/03/18 09/14/19 omega 6-cxb-ixq-fish oil [Fish Oil] 1 cap PO QAM 07/03/18 09/14/19 pyridoxine (vitamin B6) [Vitamin 25 mg PO QAM 07/03/18 09/14/19 B-6] zoledronic iczl-akwqumzx-ftust 5 mg IV .COMPLEX 12/14/18 09/14/19 [Reclast] Results & Data (ED) Vital Signs Vital Signs - 24 hr 09/14/19 17:37 09/14/19 18:28 09/14/19 20:00 Temperature 36.6 C Temperature Source Oral Pulse Rate 76 Pulse Rate [Finger] 101 H Respiratory Rate 18 20 Blood Pressure [Right Arm] 169/95 H 170/97 H Blood Pressure Mean [Right Arm] 119 121 Pulse Oximetry 99 96 Oxygen Delivery Method Room Air Room Air Sepsis Recent Fever Within 48 Hours No Sepsis Action Taken by Nursing No Action Required Laboratory Data Result diagrams: 09/14/19 18:32 09/14/19 18:32 Lab Results 09/14/19 09/14/19 09/14/19 Range/Units 18:32 18:32 18:32 WBC 13.07 H (4.8-10.8) K/uL RBC 4.22 (4.2-5.4) M/uL Hgb 14.4 (12.0-16.0) g/dL Hct 41.7 (37-47) % MCV 98.8 (80-100) fL MCH 34.1 H (25-34) pg MCHC 34.5 (32-36) g/dL RDW Std Deviation 46.2 (36.4-46.3) fL RDW Coeff of Oleg 12.8 (11.5-14.5) % Plt Count 192 (130-400) K/uL MPV 10.4 (7.4-10.4) fL Immature Gran % (Auto) 0.2 % Neut % (Auto) 87.8 % Lymph % (Auto) 6.8 % [place] % (Auto) 5.0 % Eos % (Auto) 0.1 % Baso % (Auto) 0.1 % Immature Gran # (Auto) 0.03 H (0.00-0.02) K/uL Neut # (Auto) 11.47 H (1.4-6.5) K/uL Lymph # (Auto) 0.89 L (1.2-3.4) K/uL [place] # (Auto) 0.66 H (0.11-0.59) K/uL Eos # (Auto) 0.01 (0-0.5) K/uL Baso # (Auto) 0.01 (0-0.2) K/uL PT 10.9 (9.0-12.0) Seconds INR 1.0 (0.9-1.1) APTT 21.9 (21.0-31.0) Seconds PTT Ratio 0.8 Sodium (136-145) mmol/L Potassium (3.5-5.1) mmol/L Chloride (98-107) mmol/L Carbon Dioxide (21-32) mmol/L Anion Gap (3-11) BUN (7-18) mg/dl Creatinine (0.6-1.2) mg/dl Est Cr Clr Drug Dosing ml/min Est GFR ( Amer) Est GFR (Non-Af Amer) BUN/Creatinine Ratio (10-20) Glucose (70-99) mg/dl Calcium (8.5-10.1) mg/dl 25-OH Vitamin D Total (30-100) ng/ml Urine Color Urine Appearance (Clear) Urine pH (4.5-7.5) Ur Specific [place] (1.000-1.030) Urine Protein (Negative) Urine Glucose (UA) (Negative) Urine Ketones (Negative) Urine Blood (Negative) Urine Nitrite (Negative) Urine Bilirubin (Negative) Urine Urobilinogen (Negative) Ur Leukocyte Esterase (Negative) Blood Type A Positive Antibody Screen NEGATIVE 09/14/19 09/14/19 09/14/19 Range/Units 18:32 18:39 18:40 WBC (4.8-10.8) K/uL RBC (4.2-5.4) M/uL Hgb (12.0-16.0) g/dL Hct (37-47) % MCV (80-100) fL MCH (25-34) pg MCHC (32-36) g/dL RDW Std Deviation (36.4-46.3) fL RDW Coeff of Oleg (11.5-14.5) % Plt Count (130-400) K/uL MPV (7.4-10.4) fL Immature Gran % (Auto) % Neut % (Auto) % Lymph % (Auto) % [place] % (Auto) % Eos % (Auto) % Baso % (Auto) % Immature Gran # (Auto) (0.00-0.02) K/uL Neut # (Auto) (1.4-6.5) K/uL Lymph # (Auto) (1.2-3.4) K/uL [place] # (Auto) (0.11-0.59) K/uL Eos # (Auto) (0-0.5) K/uL Baso # (Auto) (0-0.2) K/uL PT (9.0-12.0) Seconds INR (0.9-1.1) APTT (21.0-31.0) Seconds PTT Ratio Sodium 140 (136-145) mmol/L Potassium 4.1 (3.5-5.1) mmol/L Chloride 107 (98-107) mmol/L Carbon Dioxide 25 (21-32) mmol/L Anion Gap 8.0 (3-11) BUN 22 H (7-18) mg/dl Creatinine 0.93 (0.6-1.2) mg/dl Est Cr Clr Drug Dosing 60.4 ml/min Est GFR ( Amer) 75.8 Est GFR (Non-Af Amer) 65.4 BUN/Creatinine Ratio 23.7 H (10-20) Glucose 119 H (70-99) mg/dl Calcium 9.0 (8.5-10.1) mg/dl 25-OH Vitamin D Total 30.7 (30-100) ng/ml Urine Color Yellow Urine Appearance Clear (Clear) Urine pH 5.0 (4.5-7.5) Ur Specific [place] 1.027 (1.000-1.030) Urine Protein Negative (Negative) Urine Glucose (UA) Negative (Negative) Urine Ketones Negative (Negative) Urine Blood Negative (Negative) Urine Nitrite Negative (Negative) Urine Bilirubin Negative (Negative) Urine Urobilinogen Negative (Negative) Ur Leukocyte Esterase Negative (Negative) Blood Type Antibody Screen Administered Medications Acetaminophen (Tylenol) 650 mg PO Q6 PRN PRN Reason: pain Stop: 10/14/19 22:14 Last Admin: 09/14/19 22:27 Dose: 650 mg Documented by: [id number] Docusate Sodium (Colace) 100 mg PO BID [facility] Stop: 10/14/19 21:37 Last Admin: 09/14/19 22:31 Dose: 100 mg Documented by: [id number] Hydromorphone HCl (Dilaudid) 0.5 mg IV Q4H PRN PRN Reason: Pain or Pre PT Stop: 09/28/19 21:37 Last Admin: 09/14/19 21:45 Dose: 0.5 mg Documented by: [id number] Dextrose/Sodium Chloride (D5w And 1/2nss) 1,000 mls @ 100 mls/hr IV .Q10H MER Stop: 10/14/19 21:37 Last Admin: 09/14/19 22:43 Dose: 100 mls/hr Documented by: [id number] Ondansetron HCl (Zofran) 4 mg IV Q6H PRN PRN Reason: Nausea/Vomiting Stop: 10/14/19 21:37 Last Admin: 09/14/19 23:39 Dose: 4 mg Documented by: [id number] Sennosides (Senokot) 17.2 mg PO HS MER Stop: 10/14/19 21:37 Last Admin: 09/14/19 22:31 Dose: 17.2 mg Documented by: [id number] Discontinued Medications Hydromorphone HCl (Dilaudid) 0.5 mg IV Q20M PRN PRN Reason: Severe Pain (Rating 7,8,9,10) Stop: 09/28/19 17:53 Last Admin: 09/14/19 20:23 Dose: 0.5 mg Documented by: [id number] Admin: 09/14/19 18:30 Dose: 0.5 mg Documented by: [id number] Lactated Ringer's (Lr) 1,000 mls @ 150 mls/hr IV .Q6H40M [facility] Stop: 10/14/19 17:59 Last Infusion: 09/14/19 22:43 Dose: 0 mls/hr Documented by: [id number] Admin: 09/14/19 18:56 Dose: 150 mls/hr Documented by: [id number] Discharge Plan Visit Data *Final* Discharge Date/Time: 09/14/19 21:22 Chief Complaint: Leg Injury/Pain Stated Complaint: FALL, FEMUR FX ED Provider: Yaw Bhat Discharge Problem: Closed right femoral fracture Patient Disposition: Admitted As Inpatient Discharge Instructions Interventions: ED Discharge Assessment Last Done: 09/14/19 21:22
--- NOTE | 2019-09-14 18:21 | XRay Report ---
XR chest 1V portable CLINICAL HISTORY: fall, femur fx trauma COMPARISON STUDY: 04/16/2017 FINDINGS: The bones soft tissues and hemidiaphragms are normal. The cardiomediastinal silhouette is n ormal. The lungs are clear. The pulmonary vasculature is normal. Chronic granulomatous change IMPRESSION: Negative chest. ACT 112: Negative or not required by law. The above report was generated using voice recognition software. It may contain grammatical, syntax or spelling errors. Electronically signed by: Erik Epperson M.D. 09/14/2019 6:20 PM
--- NOTE | 2019-09-14 18:24 | XRay Report ---
XR femur RT 2V routine CLINICAL HISTORY: fall, midshaft pain trauma. Pain. COMPARISON: None. DISCUSSION: Transverse fracture midshaft right femur. Significant bony distraction with medial displa cement of the proximal femur in relation to the distal of 2.8 cm. All remaining bony structures show no additional acute abnormality. Localized soft tissue edema IMPRESSION: Transverse displaced fracture midshaft right femur. ACT 112: Negative or not required by law. The above report was generated using voice recognition software. It may contain grammatical, syntax or spelling errors. Electronically signed by: Erik Epperson M.D. 09/14/2019 6:22 PM
[2019-09-14] MEDS: HYDROmorphone INJ 0.5 MG/0.5 ML SYR IV PRN ×2 (18:30→20:23)
[2019-09-14 18:48] LABS: Basophils # (auto) 0.01 K/uL (0-0.2); Basophils % (auto) 0.1 %; Eosinophils # (auto) 0.01 K/uL (0-0.5); Eosinophils % (auto) 0.1 %; Hematocrit (blood only) 41.7 % (37-47); Hemoglobin 14.4 g/dL (12.0-16.0); Immature Granulocytes # (auto) 0.03 K/uL (0.00-0.02); Immature Granulocytes % (auto) 0.2 %; Lymphocytes # (auto) 0.89 K/uL (1.2-3.4); Lymphocytes % (auto) 6.8 %; Mean Corpuscular Hemoglobin 34.1 pg (25-34); Mean Corpuscular Hgb Conc 34.5 g/dL (32-36); Mean Corpuscular Volume 98.8 fL (80-100); Mean Platelet Volume 10.4 fL (7.4-10.4); Monocytes # (auto) 0.66 K/uL (0.11-0.59); Neutrophils # (auto) 11.47 K/uL (1.4-6.5); Neutrophils % (auto) 87.8 %; Platelet Count 192 K/uL (130-400); RDW Coefficient of Variation 12.8 % (11.5-14.5); RDW Standard Deviation 46.2 fL (36.4-46.3); Red Blood Count 4.22 M/uL (4.2-5.4); White Blood Count 13.07 K/uL (4.8-10.8)
[2019-09-14 18:56] LABS: Appearance Urine Clear (Clear); Bilirubin Urine Negative (Negative); Blood Urine Negative (Negative); Color Urine Yellow; Glucose Urine UA Negative (Negative); Ketones Urine Negative (Negative); Leukocyte Esterase Urine Negative (Negative); Nitrite Urine Negative (Negative); Protein Urine Negative (Negative); Specific Gravity Urine 1.027 (1.000-1.030); Urobilinogen Urine Negative (Negative)
[2019-09-14 19:02] LABS: Partial Thromboplastin Ratio 0.8; Partial Thromboplastin Time 21.9 Seconds (21.0-31.0); Prothrombin Time 10.9 Seconds (9.0-12.0)
[2019-09-14 19:06] LABS: BUN Creatinine Ratio 23.7 (10-20); Creatinine Clr Calc Pharmacy 60.4 ml/min; Est GFR (African American) 75.8; Est GFR (Non-African American) 65.4; Potassium 4.1 mmol/L (3.5-5.1)
[2019-09-14] MEDS ORDERED: NALOXONE HCL 0.4 MG/1 ML VIAL/CARP IV PRN (21:38)
[2019-09-14] MEDS ORDERED: METOCLOPRAMIDE HCL INJ 5 MG/ML 2 ML VIAL IV PRN (21:38)
[2019-09-14] MEDS ORDERED: OXYCODONE HCL IR 5 MG TAB (IMMEDIATE RELEASE) PO PRN (21:38)
[2019-09-14] MEDS ORDERED: ALUMINUM/MAGNESIUM SUSP 30 ML UDC PO PRN (21:38)
[2019-09-14] MEDS ORDERED: MAGNESIUM HYDROXIDE SUSP 30 ML UDC PO PRN (21:38)
--- NOTE | 2019-09-14 22:14 | History and Physical Report ---
DATE OF ADMISSION: 09/14/2019 CHIEF COMPLAINT: Right thigh pain. HISTORY OF PRESENT ILLNESS: The patient is a 64-year-old female who is otherwise healthy. She slipped on some wet grass, tumbled down a small hill while mowing the grass earlier today and injured her right thigh. She had had an occasional ache or pain in the right thigh previously, but nothing to really be concerned about. She was brought to the ER and was diagnosed with a femur fracture and I was consulted to see her. She currently denies numbness and tingling and injury to other areas of the body. PAST MEDICAL HISTORY: Significant for osteoporosis and she currently takes Reclast and has been on other osteoporosis medications in the past. Otherwise negative. MEDICATIONS: Mainly vitamins and include calcium, vitamin D, omega 3, multivitamin, and B12. REVIEW OF SYSTEMS: She denies stroke, seizure, eye problems, thyroid problems, COPD, asthma, heart arrhythmia, heart attack, high blood pressure, kidney or liver or intestinal disease. She has never had cancer and does not have any problems with bleeding, blood clots, allergies to metal or MRSA infections. She is not diabetic. PAST SURGICAL HISTORY: Significant for tubal ligation, cholecystectomy, bladder suspension, hernia repair without complication. ALLERGIES: PENICILLIN HAS GIVEN HER HIVES. PHYSICAL EXAMINATION: GENERAL: She is awake, alert and oriented in no acute distress. NEUROLOGIC: She moves the left leg, both upper extremities without difficulty. She responds to questions appropriately and her mood and affect are appropriate. CHEST: Clear to auscultation bilaterally. HEART: Regular in rate and rhythm without audible murmur. ABDOMEN: Not distended, soft with active bowel sounds. EXTREMITIES: The right lower leg shows some tenderness to mid thigh without deformity. She is in a traction splint. Posterior tibial pulse is not palpable, but dorsalis pedis is 1+. She has normal sensation throughout the lower leg and foot and 5/5 ankle and toe plantar flexion and dorsiflexion strength. IMAGING DATA: X-rays reveal a step-shaped midshaft femoral fracture with probable lateral cortical thickening consistent with a potential atypical femoral fracture midshaft. Otherwise negative hip and knee and no arthritis. There is displacement and angulation present. Her EKG and chest x-ray are noted. CBC showed white count of 13, hemoglobin 14, hematocrit 42, platelet count 192. PRP noted with slight elevation of BUN. PT/INR normal. UA negative. IMPRESSION: Closed right midshaft femoral fracture, possibly an atypical fracture related to osteoporosis in an otherwise healthy individual. PLAN: Findings are discussed. Options are reviewed. I have recommended closed intramedullary antegrade nailing and she agrees to proceed. She is educated about the options. We talked about the risks, benefits, rehab, and recovery. An informed consent was obtained. She will be admitted to the hospital and placed into Killian's traction. N.p.o. after midnight with preop IV antibiotics and SCDs for DVT prophylaxis. Pain control. I do not think that she needs a medicine consult and we will have anesthesia see her preoperatively.
[2019-09-14] MEDS: ACETAMINOPHEN 325 MG TAB PO PRN (22:27)
[2019-09-14] MEDS: DOCUSATE SODIUM 100 MG CAP PO SCH (22:31)
[2019-09-14] MEDS: SENNA 8.6 MG TAB PO SCH (22:31)
[2019-09-14] MEDS: D5W AND 1/2NSS 1,000 ML IV SCH (22:43)
[2019-09-14] MEDS: ONDANSETRON INJ 2 MG/ML 2 ML VIAL IV PRN (23:39)
[2019-09-15] MEDS ORDERED: CEFAZOLIN 1000MG 1,000 MG/7.5 ML SYR IV SCH (06:00)
[2019-09-15] MEDS: ACETAMINOPHEN 325 MG TAB PO PRN (07:14)
[2019-09-15] MEDS: ONDANSETRON INJ 2 MG/ML 2 ML VIAL IV PRN (07:25)
[2019-09-15] MEDS: D5W AND 1/2NSS 1,000 ML IV SCH ×2 (08:16→19:31)
[2019-09-15] MEDS: DOCUSATE SODIUM 100 MG CAP PO SCH ×2 (08:16→20:25)
[2019-09-15] MEDS ORDERED: LIDOCAINE HCL 2% 2 ML VIAL/AMP(20MG/ML) INFIL ONE (09:46)
[2019-09-15] MEDS ORDERED: PROPOFOL IV EMULSION 10 MG/ML 20 ML VIAL IV ONE ×4 (09:46→13:17)
--- NOTE | 2019-09-15 09:46 | Anesthesiology Consultation ---
Date of Service September 15, 2019 Assessment & Plan (1) Encounter for pre-operative examination: Chart Review Chart Review: Acceptable Risk for Surgery and Patient NOT seen in Pre Admission Testing Consults Requested none ASA ASA2 Proposed Anesthesia Anesthesia Type: MAC and Spinal Risk / Benefits Reviewed With: PT / POA / Parent / Guardian, Accepts Plan and Informed Consent Obtained History Surgery Operation Date: 09/15/19 07:00 Proposed Procedures p Intramedullary Martín Femur - Alek Tan MD Operation Date: 09/15/19 08:00 Proposed Procedures p Intramedullary Martín Sho - Alek Tan MD Height/Weight Height: 5 ft 3 in Weight: 76.232 kg Allergies Allergy/AdvReac Type Severity Reaction Status Date / Time Penicillins Allergy Unknown hives Verified 09/14/19 19:01 Medications Home Medications Medication Instructions Recorded Confirmed Last Taken calcium carbonate-vitamin D3 1 tab PO QPM 07/03/18 09/14/19 09/14/19 [Calcium 500 + D] cholecalciferol (vitamin D3) 1,000 unit PO QAM 07/03/18 09/14/19 09/14/19 [Vitamin D3] cyanocobalamin (vitamin B-12) 1,000 mcg PO QAM 07/03/18 09/14/19 09/14/19 multivitamin 1 cap PO QAM 07/03/18 09/14/19 09/14/19 omega 5-mge-cye-fish oil [Fish Oil] 1 cap PO QAM 07/03/18 09/14/19 09/14/19 pyridoxine (vitamin B6) [Vitamin 25 mg PO QAM 07/03/18 09/14/19 09/14/19 B-6] zoledronic dgbl-[id number] 5 mg IV .COMPLEX 12/14/18 09/14/19 10/17/18 [Reclast] Active Medications Generic Name Dose Route Start Last Admin Trade Name Freq PRN Reason Stop Dose Admin Acetaminophen 650 mg 09/14/19 22:15 09/15/19 07:14 Tylenol PO 10/14/19 22:14 650 mg Q6 PRN Administration pain Docusate Sodium 100 mg 09/14/19 21:38 09/15/19 08:16 Colace PO 10/14/19 21:37 100 mg BID MER Administration Hydromorphone HCl 0.5 mg 09/14/19 21:38 09/14/19 21:45 Dilaudid IV 09/28/19 21:37 0.5 mg Q4H PRN Administration Pain or Pre PT Dextrose/Sodium Chloride 1,000 mls @ 100 mls/hr 09/14/19 21:38 09/15/19 08:16 D5w And 1/2nss IV 10/14/19 21:37 100 mls/hr .Q10H MER Administration Ondansetron HCl 4 mg 09/14/19 21:38 09/15/19 07:25 Zofran IV 10/14/19 21:37 4 mg Q6H PRN Administration Nausea/Vomiting Sennosides 17.2 mg 09/14/19 21:38 09/14/19 22:31 Senokot PO 10/14/19 21:37 17.2 mg HS MER Administration NPO Date Last Intake of Fluids: 09/15/19 Time Last Intake of Fluids: 00:00 Date Last Intake of Solids: 09/15/19 Time Last Intake of Solids: 00:00 Past Medical History Medical History Colicky RUQ abdominal pain GERD without esophagitis (Acute) Herpes zoster without complication Hiatal hernia (Acute) Osteoporosis Postherpetic neuralgia (Acute) Postmenopausal atrophic vaginitis (Acute) Vertigo (Acute) Vitamin D deficiency (Acute) Exercise / Class Metabolic Activity II 4-5 Yardwork/Stairs/Walk up hill Negative for chest pain or shortness of breath. Past Family History Family History Other Breast cancer Coronary heart disease Diabetes Denies family history of Ovarian cancer Past Surgical History Surgical History H/O hernia repair paraesophageal hiatal History of bilateral tubal ligation History of bladder surgery History of cholecystectomy History of colonoscopy History of endoscopic sinus surgery History of Phillip fundoplication Status post myringotomy with insertion of tube RIGHT EAR Past Anesthesia History No Hx of Anesthesia Complications History of PONV No Hx of PONV Social History Smoking Status: Former smoker tobacco type: cigarettes Smoking cigarettes per day: QUIT 12 YEARS AGO. HX OF OCC SOCIAL USE Do You Dip or Chew Tobacco: No Hx Alcohol Use: No Hx Substance Use: No substance use type: does not use Review of Systems Patient denies active symptoms of GERD. Physical Exam Vital Signs Last Vital Signs Temp 37.3 C 09/15/19 09:45 Pulse 85 09/15/19 09:45 Resp 18 09/15/19 09:45 BP 164/81 H 09/15/19 09:45 Pulse Ox 95 09/15/19 09:45 Constitutional not obese ENMT Mouth: no TMJ abnormality and oral opening not small Thyromental Distance: < 3.5 Finger Breadths Mallampati Class: III Neck normal visual inspection; neck extension not limited Respiratory normal respiratory effort Auscultation: lungs clear to auscultation bilaterally Cardiovascular Rate/Rhythm: regular rate and regular rhythm Heart Sounds: no murmur Neurologic moves all extremities Psychiatric Orientation: alert and oriented x 3 Testing Laboratory Results 09/14/19 18:32 09/14/19 18:32 PT 10.9 Seconds (9.0-12.0) 09/14/19 18:32 INR 1.0 (0.9-1.1) 09/14/19 18:32 APTT 21.9 Seconds (21.0-31.0) 09/14/19 18:32 Urine Color Yellow 09/14/19 18:40 Urine Appearance Clear (Clear) 09/14/19 18:40 Urine pH 5.0 (4.5-7.5) 09/14/19 18:40 Ur Specific [place] 1.027 (1.000-1.030) 09/14/19 18:40 Urine Protein Negative (Negative) 09/14/19 18:40 Urine Glucose (UA) Negative (Negative) 09/14/19 18:40 Urine Ketones Negative (Negative) 09/14/19 18:40 Urine Nitrite Negative (Negative) 09/14/19 18:40 Ur Leukocyte Esterase Negative (Negative) 09/14/19 18:40 Blood Type A Positive 09/14/19 18:32 Antibody Screen NEGATIVE 09/14/19 18:32
[2019-09-15] MEDS ORDERED: fentaNYL citrate 100 MCG/2 ML VIAL ONE ×3 (09:47→14:46)
[2019-09-15] MEDS ORDERED: MIDAZOLAM HCL 1 MG/ML 2ML VIAL ONE ×2 (09:47→11:57)
--- NOTE | 2019-09-15 10:06 | History & Physical Bridge Note ---
Date of Service September 15, 2019 History & Physical Bridge Note I have examined the patient, reviewed the History & Physical and in the interval since the performance of the History & Physical I have noted the following changes of clinical significance: no changes noted
[2019-09-15] MEDS ORDERED: BUPIVACAINE 0.5 % 5 MG/1 ML PF 10ML VIAL ONE (10:26)
[2019-09-15] MEDS ORDERED: ONDANSETRON INJ 2 MG/ML 2 ML VIAL IV PRN (11:10)
[2019-09-15] MEDS ORDERED: ATROPINE SULFATE 0.1 MG/ML 10ML SYR IV PRN (11:10)
[2019-09-15] MEDS ORDERED: HYDROmorphone INJ 1 MG/ML SYRINGE IV PRN (11:10)
[2019-09-15] MEDS ORDERED: ePHEDrine sulfate 50 MG/ML AMP IV PRN (11:10)
[2019-09-15] MEDS ORDERED: ePHEDrine sulfate 50 MG/ML AMP ONE (11:12)
[2019-09-15] MEDS ORDERED: PHENYLEPHRINE 100MCG/ML 5ML SYR ONE (11:12)
--- NOTE | 2019-09-15 13:19 | Electrocardiogram Report ---
Test Reason : Blood Pressure : / mmHG Vent. Rate : 079 BPM Atrial Rate : 079 BPM P-R Int : 148 ms QRS Dur : 072 ms QT Int : 406 ms P-R-T Axes : 065 050 037 degrees QTc Int : 465 ms Normal sinus rhythm Normal ECG When compared with ECG of 05-MAY-2017 09:13, No significant change Confirmed by Crow Cope ([id number]) on 09/15/2019 1:19:41 PM Referred By: REFERRED SELF Confirmed By:Crow Cope
--- NOTE | 2019-09-15 14:22 | Operative Report ---
Post Operative Report Pre & Post Diagnosis Operation Date: 09/15/19 07:00 <No data on this case meets the specified criteria> Operation Date: 09/15/19 08:00 Pre-Op Diagnosis: Closed right midshaft femoral fracture Post-Op Diagnosis: Closed right midshaft femoral fracture I identified the patient and participated in the time-out.: Yes Procedure Operation Date: 09/15/19 07:00 <No data on this case meets the specified criteria> Operation Date: 09/15/19 08:00 Actual Procedures p Right Intramedullary Martín Femur(Right) - Alek Tan MD Surgeon Alek Tan MD Sand Hauler Phong Estimated Blood Loss 50 Findings Consistent with Post-Op Diagnosis Specimens None Complications none Disposition Accompanied Patient To Recovery: Yes Disposition: Recovery Room Description of Procedure Lateral decubitus position, standard perp and drape, time-out Right Intramedullary Martín Femur Please see Dr Tan's procedure notes for specific details I was present throughout the case, assisted for closure and transferred the patient to PACU in stable condition I attest to the content of the Intraoperative Record and any orders documented therein. Any exceptions are noted below.
--- NOTE | 2019-09-15 14:24 | Fluoroscopy Report ---
FL hip RT 2-3V CLINICAL HISTORY: RT HIP FX COMPARISON STUDY: Right femur 09/14/2019. FLUOROSCOPY TIME: 12 seconds.. FINDINGS: 6 fluoroscopic spot images of the right femur demonstrate an intramedullary noni with a prox imal femoral neck pin traversing the mid shaft fracture. Alignment is near-anatomic. The hardware is intact. IMPRESSION: Fluoroscopy provided for internal fixation of a midshaft right femoral fracture. ACT 112: Negative or not required by law. Electronically signed by: David Soto M.D. 09/15/2019 2:23 PM
[2019-09-15] MEDS: fentaNYL citrate 100 MCG/2 ML VIAL IV PRN ×2 (14:48→14:53)
--- NOTE | 2019-09-15 14:55 | Anesthesiology Progress Note ---
Date of Service September 15, 2019 Anesthesia Post Procedure Vital Signs Vital Signs: Temp Pulse Pulse Resp BP BP Pulse Ox 09/15/19 14:45 61 15 146/78 H 96 09/15/19 14:35 36.2 C L 68 16 139/74 95 09/15/19 14:25 57 L 17 119/69 96 09/15/19 14:17 36.2 C L 63 16 125/69 96 09/15/19 09:45 37.3 C 85 18 164/81 H 95 09/15/19 07:35 37.3 C 75 16 145/88 H 97 09/14/19 21:54 37.4 C 84 18 149/77 H 90 09/14/19 21:04 90 20 146/73 H 95 09/14/19 20:30 96 H 20 164/100 H 94 09/14/19 20:00 101 H 20 170/97 H 96 09/14/19 18:28 169/95 H 09/14/19 17:37 36.6 C 76 18 99 Pain Intensity Right Leg: Pain Intensity: 3 Transfer of Care Handoff Completed per policy Notes Mental Status: alert / awake / arousable and participated in evaluation Nausea / Vomiting: adequately controlled Pain: adequately controlled Airway Patency, RR, SpO2: stable & adequate BP & HR: stable & adequate Hydration State: stable & adequate Neuraxial Anesthesia: was administered and sensory block is resolving Anesthetic Complications: no major complications apparent and Pt Satisfied with anesthetic care
[2019-09-15] MEDS ORDERED: KETOROLAC 30 MG/ML VIAL IV PRN (15:29)
[2019-09-15] MEDS ORDERED: NALOXONE HCL 0.4 MG/1 ML VIAL/CARP IV PRN (15:29)
[2019-09-15] MEDS ORDERED: MAGNESIUM HYDROXIDE SUSP 30 ML UDC PO PRN (15:29)
[2019-09-15] MEDS ORDERED: bisacodyL 10 MG SUPP PR PRN (15:29)
[2019-09-15] MEDS ORDERED: METOCLOPRAMIDE HCL INJ 5 MG/ML 2 ML VIAL IV PRN (15:29)
--- NOTE | 2019-09-15 16:02 | Operative Report ---
Post Operative Report Pre & Post Diagnosis Operation Date: 09/15/19 07:00 <No data on this case meets the specified criteria> Operation Date: 09/15/19 08:00 Pre-Op Diagnosis: Closed right midshaft femoral fracture Post-Op Diagnosis: Closed right midshaft femoral fracture I identified the patient and participated in the time-out.: Yes Procedure Operation Date: 09/15/19 07:00 <No data on this case meets the specified criteria> Operation Date: 09/15/19 08:00 Actual Procedures p Right Intramedullary Martín Femur(Right) - Alek Tan MD Surgeon Alek Tan MD Application Packager Phong Estimated Blood Loss 50 Findings Consistent with Post-Op Diagnosis Specimens None Anesthesia Type Spinal MAC Complications none Disposition Accompanied Patient To Recovery: No Disposition: Recovery Room Indications Patient is 64 years old. She fell yesterday mowing the grass sustaining a midshaft right femur fracture. She has been on osteoporosis medications. The mechanism of injury and the nature of the fracture suggest the possibility of atypical femur fracture related to osteoporosis medications. I have recommended surgery and she agrees to proceed. We had a thorough discussion of treatment options risks benefits rehabilitation and recovery. An informed consent was obtained. Description of Procedure Patient identified. She identified the operative site as the right femur. I marked with my initials. A preop surgical timeout was performed and a preop dose of intravenous antibiotics was given. She was taken to the operating room where the spinal anesthetic was administered along with sedation. She was placed onto the radiolucent table with the right side up. Axillary roll inserted bony prominences inspected and padded her torso was secured to the table. DVT prophylaxis with SCDs intraoperatively and chemoprophylaxis in early mobility and mechanical devices postoperatively. A 4 cm proximal incision is made just above the trochanter. Electrocautery and blunt dissection were utilized down to the subcutaneous tissues and the tip of the greater trochanter was identified. After several attempts of positioning a appropriate location of the guidewire was achieved. This was reamed short of the lesser trochanter with a 17 mm reamer after confirming adequate alignment in both planes. Subsequently after the guidewire was inserted reaming with a 17 mm reamer was performed down to the lesser trochanter. A guidewire was inserted and after several attempts it was passed across the fracture site. The guidewire was advanced to the short of the Feistel score and the martín length was determined to be 360 mm. The smallest martín that we had available was a 10 mm martín. The fracture was held reduced and reaming began at 8-1/2 and proceeded to 11-1/2 with good strong cortical chatter. A Synthes 10 mm diameter by 360 mm length trochanteric nail was then inserted finishing with blows by the mallet. An accessory lateral incision was created and the triple trocar was introduced down to the femur. The guidepin for the spiral blade was inserted and adjusted x3 for appropriate position. It was determined at this point that the distal fragment was rotating around the martín and the martín was not turning within the proximal fragment resulting in difficulty in achieving the desired pin position. I was able to achieve a position which was just slightly anterior of middle and below the center of the femoral head on the AP. The lateral cortical reamer was used followed by the triple reamer and an 85 mm spiral blade was inserted followed by advancement of the locking mechanism with excellent positioning of the spiral blade within the femoral head. The fracture site was near an atomically aligned however there was some fracture comminution it occurred upon insertion of the martín. The anteromedial fragment had broken off. Rotational alignment was reestablished by taking a true lateral view of the knee and assessing for approximately 15 degrees of anteversion at the level of the femoral neck in the lateral view. Subsequently using the percutaneous perfect [place] technique to distal interlocking screws were inserted. One static and 1 dynamic. Presented of images of the fracture site which was well opposed proximal and distal martín with screws and bolts were obtained. Irrigation was then performed copiously followed by closure of wounds in layers using #1 Vicryl 0 and 2-0 Vicryl monica on the skin. Due to the small nature of the incisions and percutaneous nature the fascial divisions were left open and the abundant subcutaneous fat layer and skin were closed. The leg was cleaned with wet and dry sponges and soft sterile dressings were applied. Patient was then awakened from anesthesia without difficulty and taken to the recovery room in stable condition. There were no specimens or complications. Counts were correct. Blood loss was 50 cc. At the conclusion the operation I spoke with patient's by phone and informed him of findings and postoperative instructions were given. Adequate positioning of the distal interlocking screws was confirmed fluoroscopically. When patient was returned to the supine position her rotational alignment was anatomic. Postoperative recovery plan would include Lovenox beginning no sooner than 12 hours after surgery and partial weightbearing for approximately 6 weeks. I attest to the content of the Intraoperative Record and any orders documented therein. Any exceptions are noted below.
[2019-09-15] MEDS: TRAMADOL HCL 50 MG TABLET PO PRN ×2 (18:49→23:38)
[2019-09-15] MEDS: CEFAZOLIN 1000MG 1,000 MG/7.5 ML SYR IV SCH (18:50)
[2019-09-15] MEDS: SENNA 8.6 MG TAB PO SCH (20:25)
[2019-09-15] MEDS ORDERED: DOCUSATE SODIUM 100 MG CAP PO SCH (21:00)
[2019-09-15] MEDS ORDERED: SENNA 8.6 MG TAB PO SCH (21:00)
[2019-09-16] MEDS: ACETAMINOPHEN 325 MG TAB PO PRN ×3 (01:07→18:01)
[2019-09-16] MEDS: D5W AND 1/2NSS 1,000 ML IV SCH ×3 (01:08→21:17)
[2019-09-16] MEDS: TRAMADOL HCL 50 MG TABLET PO PRN ×2 (03:42→09:18)
[2019-09-16] MEDS: CEFAZOLIN 1000MG 1,000 MG/7.5 ML SYR IV SCH (03:43)
[2019-09-16 06:21] LABS: Hematocrit (blood only) 33.1 % (37-47); Hemoglobin 11.1 g/dL (12.0-16.0); Mean Corpuscular Hemoglobin 33.5 pg (25-34); Mean Corpuscular Hgb Conc 33.5 g/dL (32-36); Platelet Count 144 K/uL (130-400); RDW Coefficient of Variation 12.9 % (11.5-14.5); RDW Standard Deviation 47.4 fL (36.4-46.3); Red Blood Count 3.31 M/uL (4.2-5.4); White Blood Count 7.47 K/uL (4.8-10.8)
[2019-09-16 06:48] LABS: BUN Creatinine Ratio 14.6 (10-20); Calcium 7.7 mg/dl (8.5-10.1); Creatinine Clr Calc Pharmacy 77.1 ml/min; Est GFR (African American) 101.6; Est GFR (Non-African American) 87.7; Potassium 3.7 mmol/L (3.5-5.1)
[2019-09-16] MEDS: ONDANSETRON INJ 2 MG/ML 2 ML VIAL IV PRN ×2 (07:06→13:56)
[2019-09-16] MEDS ORDERED: ERGOCALCIFEROL 50,000 UNITS CAP PO STA (09:13)
[2019-09-16] MEDS: MULTIVITAMIN TAB PO SCH (09:18)
[2019-09-16] MEDS: DOCUSATE SODIUM 100 MG CAP PO SCH ×2 (09:18→20:14)
--- NOTE | 2019-09-16 09:27 | Progress Notes ---
DATE: 09/16/2019 SUBJECTIVE: The patient is resting comfortably in bed. She does have some discomfort but is better than she was yesterday. She is not having any numbness or tingling or any other problems. OBJECTIVE: She is afebrile. Her vital signs are stable. Her blood pressures have been a little bit high. Currently normal. White count is 7, hemoglobin 11, hematocrit 33, platelet count is 144. Her PRP is noted with slightly low sodium. Her vitamin D level is just within normal limits at 31. PHYSICAL EXAMINATION: Her thigh is mildly swollen. Dressing is clean, dry and intact. Thigh is not tense. She can flex and extend her ankle and wiggle her toes with 5/5 strength. Dorsalis pedis and posterior tibial pulses are 1+ and her sensation is intact. IMPRESSION: Right midshaft femoral fracture, possibly secondary to bisphosphonate osteoporosis medications causing an atypical type femur fracture. PLAN: Antibiotics are finished. Lovenox for DVT prophylaxis. PT and OT. Depending on how she does, can consider [facility] versus heading home. Pain control, elevation, icing. I went over exercises with her at the bedside. I discussed with her the results of surgery. She will follow up with me at 2 weeks postop. I will be out tomorrow and one of my colleagues will see her and change dressing.
--- NOTE | 2019-09-16 10:43 | Anesthesiology Progress Note ---
Date of Service September 16, 2019 Anesthesia Post Procedure Vital Signs Vital Signs: Temp Pulse Pulse Resp BP Pulse Ox 09/16/19 07:08 37.0 C 80 16 130/73 92 09/16/19 03:09 37.3 C 100 H 14 121/70 91 09/15/19 23:05 37.5 C 90 16 111/66 91 09/15/19 18:25 37.5 C 83 18 138/77 94 09/15/19 16:22 36.8 C 75 16 152/80 H 95 09/15/19 16:02 36.7 C 79 16 151/85 H 94 09/15/19 15:30 37.2 C 71 16 134/88 99 09/15/19 15:10 66 15 126/74 97 09/15/19 14:55 66 16 148/81 H 98 09/15/19 14:45 61 15 146/78 H 96 09/15/19 14:35 36.2 C L 68 16 139/74 95 09/15/19 14:25 57 L 17 119/69 96 09/15/19 14:17 36.2 C L 63 16 125/69 96 Pain Intensity Right Leg: Pain Intensity: 4 Notes Mental Status: alert / awake / arousable Nausea / Vomiting: adequately controlled Pain: adequately controlled Airway Patency, RR, SpO2: stable & adequate BP & HR: stable & adequate Hydration State: stable & adequate Neuraxial Anesthesia: was administered and sensory block resolved Anesthetic Complications: no major complications apparent and Pt Satisfied with anesthetic care
[2019-09-16] MEDS: ENOXAPARIN INJ 30 MG/0.3 ML SYR SQ SCH (19:08)
[2019-09-16] MEDS: SENNA 8.6 MG TAB PO SCH (20:14)
[2019-09-17] MEDS: ENOXAPARIN INJ 30 MG/0.3 ML SYR SQ SCH (06:21)
[2019-09-17 07:08] VITALS: O2SAT 90
[2019-09-17] MEDS: D5W AND 1/2NSS 1,000 ML IV SCH (07:23)
[2019-09-17] MEDS ORDERED: CHOLECALCIFEROL 1,000 UNITS 25 MCG TAB PO SCH (09:00)
[2019-09-17] MEDS: ACETAMINOPHEN 325 MG TAB PO PRN (09:08)
[2019-09-17] MEDS: DOCUSATE SODIUM 100 MG CAP PO SCH (09:08)
[2019-09-17] MEDS: MULTIVITAMIN TAB PO SCH (09:08)
[2019-09-17] MEDS: TRAMADOL HCL 50 MG TABLET PO PRN ×2 (10:06→14:18)
[2019-09-17 10:09] VITALS: TEMP 98.8
--- NOTE | 2019-09-17 10:28 | Orthopedic Progress Note ---
Date of Service September 17, 2019 Assessment & Plan (1) Closed right femoral fracture: Awaiting PT/OT this AM to determine discharge status Spoke with case management and recommended likely discharge to [facility] for rehab base on AM eval. After PT/OT and discussion with CM, patient agrees. Dressing changed. Pain control with PO meds DVT prophy with Lovenox F/u with Dr. Tan as scheduled on 09/29/19 Ice with EZ wrap Keep dressings in place. Partial weight bearing on Rt LE with walker assistance. With questions contact clinic @ Admission and Anticipated Discharge Date Admission Date: September 14, 2019 Subjective This 64 yo F is seen the is AM. She is day 2 s/p Right Intramedullary Martín Femur after falling while mowing her lawn. Patient is currently laying in bed with mild pain in her Right thigh. She states that PO meds have controlled it somewhat but she is unable to lift her leg or bend at the knee. She also states that she was not able to participate in PT yesterday due to lightheadedness and nausea. She denies CP, SOB, vomiting, fever, chills, sweats or lethargy. Review of Systems Review of Systems: All systems reviewed & are unremarkable except as noted in Subjective Physical Exam Physical Exam: Right LE: dressings removed from thigh. All would are clean, dry and monica are in place without surrounding erythema, warmth or ecchymosis. Mild edema to Right thigh. Quad strength 2/5. Unable to actively perform SLRT or flex knee beyond 10 degrees due to pain in thigh. Able to actively dorsi/plantar flex foot, internally/externally rotate ankle and move digits. Calf soft and supple. NV intact. Periph pulses easily palpable. Cap refill < 2 seconds. Results & Data ([facility]) Vital Signs (Past 12 Hours) Vital Signs Temp Pulse Resp BP Pulse Ox 09/17/19 10:07 37.1 C 09/17/19 07:06 37.7 C H 75 16 128/73 90 09/16/19 23:06 37.4 C 77 18 105/66 94
--- NOTE | 2019-09-17 11:53 | Discharge Summary ---
Date of Service September 17, 2019 Admission HPI Per Admitting Provider The patient is a 64-year-old female who is otherwise healthy. She slipped on some wet grass, tumbled down a small hill while mowing the grass earlier today and injured her right thigh. She had had an occasional ache or pain in the right thigh previously, but nothing to really be concerned about. She was brought to the ER and was diagnosed with a femur fracture and I was consulted to see her. She currently denies numbness and tingling and injury to other areas of the body. Admission Exam Per Admitting Provider GENERAL: She is awake, alert and oriented in no acute distress. NEUROLOGIC: She moves the left leg, both upper extremities without difficulty. She responds to questions appropriately and her mood and affect are appropriate. CHEST: Clear to auscultation bilaterally. HEART: Regular in rate and rhythm without audible murmur. ABDOMEN: Not distended, soft with active bowel sounds. EXTREMITIES: The right lower leg shows some tenderness to mid thigh without deformity. She is in a traction splint. Posterior tibial pulse is not palpable, but dorsalis pedis is 1+. She has normal sensation throughout the lower leg and foot and 5/5 ankle and toe plantar flexion and dorsiflexion strength. Principal Diagnosis Closed right midshaft femoral fracture, possibly an atypical fracture related to osteoporosis Discharge Exam Right LE: dressings removed from thigh. All would are clean, dry and monica are in place without surrounding erythema, warmth or ecchymosis. Mild edema to Right thigh. Quad strength 2/5. Unable to actively perform SLRT or flex knee beyond 10 degrees due to pain in thigh. Able to actively dorsi/plantar flex foot, internally/externally rotate ankle and move digits. Calf soft and supple. NV intact. Periph pulses easily palpable. Cap refill < 2 seconds. Discharge Data Allergies Allergy/AdvReac Type Severity Reaction Status Date / Time Penicillins Allergy Unknown hives Verified 09/14/19 19:01 Consultations 09/14/19 19:55 ED Decision to Admit Stat 09/14/19 21:38 Consult Anesthesiology Stat 09/15/19 15:29 Consult Case Management - Discharge Planning Routine Procedures Performed Operation Date: 09/15/19 07:00 <No data on this case meets the specified criteria> Operation Date: 09/15/19 08:00 Actual Procedures p Right Intramedullary Martín Femur(Right) - Alek Tan MD Ordered Studies 09/15/19 12:00 FL fluoroscopy <1hr Routine FL hip RT 2-3V Routine Hospital Course (1) Closed right femoral fracture: Patient has been unable to fully participate in PT/OT activities while inpatient and has very limited function of her Right LE follow surgery. She is very hesitant to flex at her knee or attempt a SLRT due to having pain. After discussion with patient and case management, patient is in agreement to be discharged to acute rehab facility until she is functionally able to be discharged home with in-home PT. Awaiting PT/OT this AM to determine discharge status Spoke with case management and recommended likely discharge to [facility] for rehab base on AM eval. After PT/OT and discussion with CM, patient agrees. Dressing changed. Pain control with PO meds DVT prophy with Lovenox F/u with Dr. Tan as scheduled on 09/29/19 Ice with EZ wrap Keep dressings in place. Partial weight bearing on Rt LE with walker assistance. With questions contact clinic @ Total Time Total Time Spent Total Time Spent (In Minutes): 25 mins Total Time Includes: Examination of the Patient, Discharge Planning, Medication Reconciliation and Communication With Other Providers Discharge Plan Discharge Items Patient Disposition: Transfer Inpatient Rehab Fac Reason For Visit: R FEMUR FRACTURE Discharge Diagnosis: Right femur fracture Activity: Per Instructions section Lifting: Wait until after follow-up appointment Bathing: Keep incision dry Bathing Comment: May shower Friday Sexual Activity: Wait until after follow-up appointment Exercise/Sports: Wait until after follow-up appointment Driving/Machine Use: No driving until cleared by orthropedic specialist Weightbearing: Right partial Weightbearing Comment: lower extremity Non-emergency contact: Surgeon Call non-emergency contact if: you have any medication questions, your pain is not controlled, your pain is worsening, your pain is concerning for you, your temperature is above 101, your wound has increased redness and your wound has increased drainage Follow-up/Referrals: Jim Gautam III, MD [Primary Care Provider] - Alek Tan MD [Surgeon] - 09/29/19 2:15 pm Diet: Regular Addtl Attending Provider Instructions: Partial weight bear right lower extremity Use walker to assist with ambulation. Ice to right thigh as needed for pain/swelling. Elevate right lower extremity above heart to relieve pain/swelling. Allowed for full range of motion right hip, knee and ankle. Ankle pumps, quad sets, straight leg raises as instructed by therapist or while in the hospital. Keep incisions clean and dry. Keep covered with light dressings May shower as of Friday09/19/19, allowed to let soap and water run over incisions, then redress with light dressing. Lovenox as prescribed, for 2-4 weeks after surgery. Script electronically sent to pharmacy Pain medication as prescribed. Script electronically sent to pharmacy. Take over the counter stool softener while on pain medication. PT as ordered/prescribed. Follow up with Dr. Tan 10-14 days after surgery as scheduled on 09/29/19 at 2:15 p.m. Pending Studies at Discharge: No Stand-Alone Forms: My [facility] Skilled Items Patient informed of condition?: Yes DNR: No Discharge Level of Care: Acute rehab Communicable Disease: No Discharge Prognosis: Stable Lines: None Urinary Catheter: No Medications and DC Order Prescriptions: New tramadol 50 mg tablet 50 mg PO Q6H PRN (Reason: pain) Qty: 30 RF: 0 enoxaparin [Lovenox] 40 mg/0.4 mL syringe 40 mg SQ DAILY 14 Days Qty: 5.6 RF: 1 Continued pyridoxine (vitamin B6) [Vitamin B-6] 25 mg Tablet 25 mg PO QAM RF: 0 multivitamin Capsule 1 cap PO QAM RF: 0 cholecalciferol (vitamin D3) [Vitamin D3] 1,000 unit Capsule 1,000 unit PO QAM RF: 0 calcium carbonate-vitamin D3 [Calcium 500 + D] 500 mg(1,250mg) -200 unit Tablet 1 tab PO QPM RF: 0 omega 0-ulv-zaa-fish oil [Fish Oil] 1,000 mg (120 mg-180 mg) Capsule 1 cap PO QAM RF: 0 cyanocobalamin (vitamin B-12) 1,000 mcg Capsule 1,000 mcg PO QAM RF: 0 zoledronic ffrl-rrdaxctv-tpdfc [Reclast] 5 mg/100 mL piggyback 5 mg IV .COMPLEX RF: 0 Discharge Orders: Discharge Order (Routine); Ordered 09/17/19 Ordered By: Jim Saldana Admission Data Admit Date/Time: 09/14/19 20:27 Attending Provider: Alek Tan Admit Provider: Alek Tan Primary Care Provider: Jim Gautam III Other Providers: Alek Tan ; Trey Grier ; [facility]
[2019-09-17] MEDS: ONDANSETRON INJ 2 MG/ML 2 ML VIAL IV PRN (14:18)
[2019-09-17 14:42] VITALS: BP 146/73; PULSE 83
== END 2019-09-17 16:44 | DRG 482 ==
LOC: ED 17:30 → 3E 20:27

== ENCOUNTER 2019-09-29 16:45 | Inpatient (IN) ==
--- NOTE | 2019-09-29 17:31 | Emergency Department Note ---
Impression & Plan Bilateral pulmonary embolism, DVT (deep venous thrombosis), Atrial tachycardia ED Provider Note NAME: CARLI HODGE AGE: 64 SEX: F : 1955 ARRIVES VIA: Walk-In INFORMANT: Patient ED PROVIDER(S): Adair Lopez DO CHIEF COMPLAINT: Right lower extremity swelling and pain HPI: Patient notes that she was cutting her grass 12/14/2019 and fell and broke her right femur. She had surgery by Dr. Tan on 09/14 for her right femur fracture. She went today to have her sutures removed and she noted and informed him that she was having pain in her right calf which started last night. She notes that she has been having increased swelling in her right calf over the past several days. It had been decreasing up until recently in size. She notes the swelling in her femur has diminished. She denies any chest pain or shortness of breath. No nausea vomiting diarrhea. She notes she has been going to physical therapy and has been up walking around about every 30 minutes. She denies any tingling or numbness in the leg. No other exacerbating or remitting factors. ROS: See above HPI for pertinent positives & negatives. A total of 10 systems reviewed and were otherwise negative. PAST MEDICAL HISTORY:See Below PAST SURGICAL HISTORY:See Below FAMILY HISTORY:See Below SOCIAL HISTORY:See Below HOME MEDICATIONS:See Below ALLERGIES:See Below VITALS:See Below PHYSICAL EXAMINATION: GENERAL: Sitting up in bed, alert, well appearing, well nourished, no distress, non-toxic EYE EXAM: normal conjunctiva. OROPHARYNX: no exudate, no erythema, lips, buccal mucosa, and tongue normal and mucous membranes are moist NECK: supple, no nuchal rigidity, no adenopathy, non-tender LUNGS: Clear to auscultation. Normal chest wall mechanics HEART: no murmurs, S1 normal and S2 normal ABDOMEN: abdomen soft, non-tender, normo-active bowel sounds, no masses, no rebound or guarding. UPPER EXTREMITIES: upper extremities are grossly normal. LOWER EXTREMITIES: Right calf larger than left. Pitting edema in the right lower extremity. Incision is clean dry and intact with 2 separate areas having Steri-Strips in place. DP 2 out of 4. Flexion-extension of the hip knee and ankle intact with some discomfort with movement of the right femur. NEURO EXAM: Normal sensorium, cranial nerves II-XII grossly intact, normal speech, no gross weakness of arms, no gross weakness of legs. MEDICAL DECISION MAKING: Patient is a 64-year-old female with recent surgery on her femur secondary to a fracture on 09/15/2019 that presents the ER for extensive DVT in her right lower extremity. She was slightly tachycardic upon presentation. IV was established blood work was obtained. Labs showed no significant leukocytosis with mild anemia 11.6 thousand. INR was unremarkable. BMP along with LFTs bilirubin and troponin was negative. EKG was unremarkable. CT Deanna of the chest was performed and showed bilateral pulmonary emboli. After extensive discussion with the patient she denies any recent hematemesis, hemoptysis, hematuria, melena or bright red blood per rectum. She denies any previous brain bleeds or recent surgery with exception of her right femur. She was given a heparin bolus and placed on heparin drip. She was updated bedside. Discussed with the hospitalist and admitted for bilateral PEs. Triage Nursing notes reviewed. Prior medical records reviewed Vital Signs: reviewed and remarkable for hypertensive and tachycardic Differential diagnosis: DVT, musculoskeletal, infection, joint effusion, trauma, lymphedema, idiopathic, CHF, as well as other pathologies. ER treatment provided: See below Diagnostics interpreted by me: ECG: Sinus rhythm rate of 79 Normal axis T WI in the inferior leads Normal QTC No PVCs Cardiac Monitoring: An order was placed for continuous cardiac monitoring. The monitor shows a rate of 105 with sinus rhythm. Laboratory studies: As stated above and show below. Imaging studies: CT Angio of the chest shows bilateral PEs Consultation(s): Discussed with Dr. Deangelo Mdeina ED COURSE: Procedures: none Critical Care: I have personally spent 40 minutes of critical care time in the direct management of this patient. This includes bedside care, interpretation of diagnostic studies, and testing, discussion with consultants, patient, and family members, and other required patient management activities. This 40 minutes is in excess of all separately billable procedures. Past Med/Surg History Social History (Updated 08/13/19 @ 11:13 by Lorraine Valadez) Preferred Language: Nigerien Communication Ability: Effective Chips Screen Tender Required: No Beliefs That Will Affect Care: None marital status: Current Living Situation: Spouse Feels Safe at Home: Yes Smoking Status: Former smoker Tobacco Type: cigarettes ; Cigarettes Per Day: QUIT 12 YEARS AGO. HX OF OCC SOCIAL USE ; Second Hand Exposure: No ; Hx Alcohol Use: No Hx Substance Use: No Allergies Allergies Allergy/AdvReac Type Severity Reaction Status Date / Time Penicillins Allergy Unknown hives Verified 09/29/19 18:48 Home Meds Home Medications Medication Instructions Recorded Confirmed calcium carbonate-vitamin D3 1 tab PO QPM 07/03/18 09/29/19 [Calcium 500 + D] cholecalciferol (vitamin D3) 1,000 unit PO QAM 07/03/18 09/29/19 [Vitamin D3] cyanocobalamin (vitamin B-12) 1,000 mcg PO QAM 07/03/18 09/29/19 multivitamin 1 cap PO QAM 07/03/18 09/29/19 omega 0-hud-zsi-fish oil [Fish Oil] 1 cap PO QAM 07/03/18 09/29/19 pyridoxine (vitamin B6) [Vitamin 25 mg PO QAM 07/03/18 09/29/19 B-6] zoledronic wjcc-paoqceqw-wabhn 5 mg IV YEARLY 12/14/18 09/29/19 [Reclast] Previous Rx's Medication Instructions Recorded tramadol 50 mg PO Q6H PRN #30 tab 09/17/19 acetaminophen 325 mg tablet 650 mg PO Q6H PRN #60 tab 09/28/19 docusate sodium 100 mg capsule 100 mg PO BID #60 cap 09/28/19 lidocaine 5 % topical patch 1 patch TOP DAILY #1 ea 09/28/19 sennosides 8.6 mg-docusate sodium 1 tabcap PO DAILY PRN #30 tab 09/28/19 50 mg tablet Results & Data (ED) Vital Signs Vital Signs - 24 hr 09/29/19 16:46 09/29/19 17:50 09/29/19 18:00 Temperature 36.7 C Temperature Source Oral Pulse Rate 80 77 Pulse Rate from SpO2 Sensor 78 Respiratory Rate 19 19 Blood Pressure 143/70 H Blood Pressure Mean 94 Pulse Oximetry 99 96 Oxygen Delivery Method Room Air Room Air Sepsis Recent Fever Within 48 Hours No Sepsis Action Taken by Nursing No Action Required 09/29/19 18:59 09/29/19 19:00 09/29/19 19:30 Temperature Temperature Source Pulse Rate 111 H 103 H 112 H Pulse Rate from SpO2 Sensor 107 H 103 H 112 H Respiratory Rate 35 H 23 24 Blood Pressure 156/78 H 147/103 H 146/85 H Blood Pressure Mean 104 122 94 Pulse Oximetry 98 100 98 Oxygen Delivery Method Room Air Room Air Room Air Sepsis Recent Fever Within 48 Hours Sepsis Action Taken by Nursing 09/29/19 20:00 09/29/19 21:00 09/29/19 21:30 Temperature Temperature Source Pulse Rate 104 H 108 H 107 H Pulse Rate from SpO2 Sensor 106 H 108 H 108 H Respiratory Rate 20 17 18 Blood Pressure 139/70 140/75 148/85 H Blood Pressure Mean 114 94 104 Pulse Oximetry 98 97 96 Oxygen Delivery Method Room Air Room Air Sepsis Recent Fever Within 48 Hours Sepsis Action Taken by Nursing Laboratory Data Result diagrams: 09/29/19 17:36 09/29/19 17:36 Lab Results 09/29/19 09/29/19 09/29/19 Range/Units 17:36 17:36 17:36 WBC 10.41 (4.8-10.8) K/uL RBC 3.48 L (4.2-5.4) M/uL Hgb 11.6 L (12.0-16.0) g/dL POC Hgb (12.0-16.0) g/dl Hct 35.5 L (37-47) % POC Hct (37-47) % MCV 102.0 H (80-100) fL MCH 33.3 (25-34) pg MCHC 32.7 (32-36) g/dL RDW Std Deviation 51.0 H (36.4-46.3) fL RDW Coeff of Oleg 13.8 (11.5-14.5) % Plt Count 222 (130-400) K/uL MPV 9.5 (7.4-10.4) fL Immature Gran % (Auto) 0.3 % Neut % (Auto) 70.7 % Lymph % (Auto) 18.0 % [place] % (Auto) 10.3 % Eos % (Auto) 0.4 % Baso % (Auto) 0.3 % Immature Gran # (Auto) 0.03 H (0.00-0.02) K/uL Neut # (Auto) 7.37 H (1.4-6.5) K/uL Lymph # (Auto) 1.87 (1.2-3.4) K/uL [place] # (Auto) 1.07 H (0.11-0.59) K/uL Eos # (Auto) 0.04 (0-0.5) K/uL Baso # (Auto) 0.03 (0-0.2) K/uL PT 10.9 (9.0-12.0) Seconds INR 1.0 (0.9-1.1) APTT 25.7 (21.0-31.0) Seconds PTT Ratio 0.9 POC Sodium (135-144) mmol/L Sodium 139 (136-145) mmol/L POC Potassium (3.3-5.0) mmol/L Potassium 4.2 (3.5-5.1) mmol/L POC Chloride (101-112) mmol/L Chloride 107 (98-107) mmol/L Carbon Dioxide 26 (21-32) mmol/L POC Total CO2 (24-31) mmol/L Anion Gap 7.0 (3-11) POC Anion Gap (16-25) mmol/L POC BUN (7-18) mg/dl BUN 24 H (7-18) mg/dl Creatinine 0.83 (0.6-1.2) mg/dl POC Creatinine (0.6-1.3) mg/dl Est Cr Clr Drug Dosing Not Reportable Est GFR ( Amer) 87.0 Est GFR (Non-Af Amer) 75.0 BUN/Creatinine Ratio 28.4 H (10-20) Glucose 98 (70-99) mg/dl POC Glucose (other) (70-99) mg/dl Calcium 8.9 (8.5-10.1) mg/dl POC Ioniz Calcium Gisella (1.12-1.32) mmol/l Total Bilirubin 0.3 (0.2-1) mg/dl AST 19 (15-37) U/L ALT 33 (12-78) U/L Alkaline Phosphatase 58 (45-117) U/L Troponin I < 0.015 (0-0.045) ng/ml Total Protein 7.3 (6.4-8.2) gm/dl Albumin 3.4 (3.4-5.0) gm/dl Globulin 3.9 (2.5-4.0) gm/dl Albumin/Globulin Ratio 0.9 (0.9-2) 09/29/19 Range/Units 17:42 WBC (4.8-10.8) K/uL RBC (4.2-5.4) M/uL Hgb (12.0-16.0) g/dL POC Hgb 12.2 (12.0-16.0) g/dl Hct (37-47) % POC Hct 36 L (37-47) % MCV (80-100) fL MCH (25-34) pg MCHC (32-36) g/dL RDW Std Deviation (36.4-46.3) fL RDW Coeff of Oleg (11.5-14.5) % Plt Count (130-400) K/uL MPV (7.4-10.4) fL Immature Gran % (Auto) % Neut % (Auto) % Lymph % (Auto) % [place] % (Auto) % Eos % (Auto) % Baso % (Auto) % Immature Gran # (Auto) (0.00-0.02) K/uL Neut # (Auto) (1.4-6.5) K/uL Lymph # (Auto) (1.2-3.4) K/uL [place] # (Auto) (0.11-0.59) K/uL Eos # (Auto) (0-0.5) K/uL Baso # (Auto) (0-0.2) K/uL PT (9.0-12.0) Seconds INR (0.9-1.1) APTT (21.0-31.0) Seconds PTT Ratio POC Sodium 139 (135-144) mmol/L Sodium (136-145) mmol/L POC Potassium 4.4 (3.3-5.0) mmol/L Potassium (3.5-5.1) mmol/L POC Chloride 105 (101-112) mmol/L Chloride (98-107) mmol/L Carbon Dioxide (21-32) mmol/L POC Total CO2 25 (24-31) mmol/L Anion Gap (3-11) POC Anion Gap 14.0 L (16-25) mmol/L POC BUN 24 H (7-18) mg/dl BUN (7-18) mg/dl Creatinine (0.6-1.2) mg/dl POC Creatinine 0.8 (0.6-1.3) mg/dl Est Cr Clr Drug Dosing Est GFR ( Amer) Est GFR (Non-Af Amer) BUN/Creatinine Ratio (10-20) Glucose (70-99) mg/dl POC Glucose (other) 96 (70-99) mg/dl Calcium (8.5-10.1) mg/dl POC Ioniz Calcium Gisella 1.19 (1.12-1.32) mmol/l Total Bilirubin (0.2-1) mg/dl AST (15-37) U/L ALT (12-78) U/L Alkaline Phosphatase (45-117) U/L Troponin I (0-0.045) ng/ml Total Protein (6.4-8.2) gm/dl Albumin (3.4-5.0) gm/dl Globulin (2.5-4.0) gm/dl Albumin/Globulin Ratio (0.9-2) Administered Medications Heparin Sodium/Dextrose (Heparin Sodium/Dextrose) 25,000 units in 500 mls @ 23 mls/hr IV .[id number] [facility]; Protocol Stop: 10/29/19 19:14 Last Admin: 09/29/19 19:36 Dose: 1,150 units/hr, 23 mls/hr Documented by: [id number] Cosigned by: [id number] Ioversol (Optiray 320 125ml) 106 ml IV ONCE PRN PRN Reason: Interaction Checking Stop: 10/03/19 18:55 Last Admin: 09/29/19 18:57 Dose: 106 ml Documented by: [id number] Discontinued Medications Heparin Sodium (Porcine) (Heparin Iv Bolus) 5,000 units IV NOW ONE Stop: 09/29/19 19:46 Last Admin: 09/29/19 19:37 Dose: 5,000 units Documented by: [id number] Cosigned by: [id number] Heparin Sodium (Porcine) (Heparin Sodium (Porcine)) Confirm Administered Dose 5,000 units .ROUTE .STK-MED ONE Stop: 09/29/19 19:35 Last Admin: 09/29/19 19:36 Dose: Not Given Documented by: [id number] Heparin Sodium/Dextrose () 1 ea IV NOW STA; Protocol Stop: 09/29/19 19:09 Last Admin: 09/29/19 19:38 Dose: 1 ea Documented by: [id number] Discharge Plan Visit Data Chief Complaint: Leg Injury/Pain Stated Complaint: RIGHT LEG SWELLING AND PAIN ED Provider: Adair Lopez Discharge Problem: Bilateral pulmonary embolism, DVT (deep venous thrombosis), Atrial tachycardia Forms Stand Alone Forms: My [facility] Prescriptions Prescriptions: No Action docusate sodium 100 mg capsule 100 mg PO BID Qty: 60 RF: 0 lidocaine [Lidoderm] 5 % adhesive patch,medicated 1 patch TOP DAILY Qty: 1 RF: 0 acetaminophen 325 mg tablet 650 mg PO Q6H PRN (Reason: pain) Qty: 60 RF: 0 sennosides-docusate sodium [Senokot-S] 8.6-50 mg tablet 1 tabcap PO DAILY PRN (Reason: constipation) Qty: 30 RF: 0 pyridoxine (vitamin B6) [Vitamin B-6] 25 mg Tablet 25 mg PO QAM RF: 0 multivitamin Capsule 1 cap PO QAM RF: 0 cholecalciferol (vitamin D3) [Vitamin D3] 1,000 unit Capsule 1,000 unit PO QAM RF: 0 calcium carbonate-vitamin D3 [Calcium 500 + D] 500 mg(1,250mg) -200 unit Tablet 1 tab PO QPM RF: 0 omega 5-qti-vct-fish oil [Fish Oil] 1,000 mg (120 mg-180 mg) Capsule 1 cap PO QAM RF: 0 cyanocobalamin (vitamin B-12) 1,000 mcg Capsule 1,000 mcg PO QAM RF: 0 zoledronic faxp-featence-pidxd [Reclast] 5 mg/100 mL piggyback 5 mg IV YEARLY RF: 0 tramadol 50 mg tablet 50 mg PO Q6H PRN (Reason: pain) Qty: 30 RF: 0 Discharge Problem: DVT (deep venous thrombosis) Qualifiers: DVT location: lower extremity Affected thrombotic vein of extremity: unspecified vein of extremity Chronicity: acute Laterality: right Qualified Code(s): I82.401 - Acute embolism and thrombosis of unspecified deep veins of right lower extremity
[2019-09-29 17:45] LABS: Basophils # (auto) 0.03 K/uL (0-0.2); Basophils % (auto) 0.3 %; Eosinophils # (auto) 0.04 K/uL (0-0.5); Eosinophils % (auto) 0.4 %; Hematocrit (blood only) 35.5 % (37-47); Hemoglobin 11.6 g/dL (12.0-16.0); Immature Granulocytes # (auto) 0.03 K/uL (0.00-0.02); Immature Granulocytes % (auto) 0.3 %; Lymphocytes # (auto) 1.87 K/uL (1.2-3.4); Mean Corpuscular Hemoglobin 33.3 pg (25-34); Mean Corpuscular Hgb Conc 32.7 g/dL (32-36); Mean Platelet Volume 9.5 fL (7.4-10.4); Monocytes # (auto) 1.07 K/uL (0.11-0.59); Monocytes % (auto) 10.3 %; Neutrophils # (auto) 7.37 K/uL (1.4-6.5); Neutrophils % (auto) 70.7 %; Platelet Count 222 K/uL (130-400); RDW Coefficient of Variation 13.8 % (11.5-14.5); Red Blood Count 3.48 M/uL (4.2-5.4); White Blood Count 10.41 K/uL (4.8-10.8)
[2019-09-29 17:54] LABS: iSTAT Creatinine 0.8 mg/dl (0.6-1.3); iSTAT Hemoglobin 12.2 g/dl (12.0-16.0); iSTAT Ionized Calcium 1.19 mmol/l (1.12-1.32); iSTAT Potassium 4.4 mmol/L (3.3-5.0)
[2019-09-29 17:58] LABS: Partial Thromboplastin Ratio 0.9; Partial Thromboplastin Time 25.7 Seconds (21.0-31.0); Prothrombin Time 10.9 Seconds (9.0-12.0)
[2019-09-29 18:02] LABS: Alanine Aminotransferase 33 U/L (12-78); Albumin Level 3.4 gm/dl (3.4-5.0); Aspartate Aminotransferase 19 U/L (15-37); BUN Creatinine Ratio 28.4 (10-20); Blood Urea Nitrogen 24 mg/dl (7-18); Calcium 8.9 mg/dl (8.5-10.1); Carbon Dioxide 26 mmol/L (21-32); Chloride 107 mmol/L (98-107); Glucose 98 mg/dl (70-99); Potassium 4.2 mmol/L (3.5-5.1); Sodium 139 mmol/L (136-145)
[2019-09-29 18:07] LABS: Albumin Globulin Ratio 0.9 (0.9-2); Alkaline Phosphatase 58 U/L (45-117); Bilirubin,Total 0.3 mg/dl (0.2-1); Globulin 3.9 gm/dl (2.5-4.0); Total Protein 7.3 gm/dl (6.4-8.2); Troponin I < 0.015 ng/ml (0-0.045)
[2019-09-29] MEDS ORDERED: OPTIRAY 320 125ml IV PRN (18:56)
--- NOTE | 2019-09-29 19:05 | CT Scan Report ---
CT ANGIOGRAM OF THE CHEST CLINICAL HISTORY: Pain. Recent surgery. DVT. COMPARISON STUDY: Chest x-ray dated 09/06/2019 TECHNIQUE: Following the IV administration of 106 mL of Optiray-320, CT angiogram of the thorax was p erformed from the thoracic inlet to the lung bases utilizing the pulmonary embolus protocol. Images a re reviewed in the axial, sagittal, and coronal planes. IV contrast was administered without complica tion. MIP imaging was performed. A dose lowering technique was utilized adhering to the principles o f ALARA. CT DOSE: 438.11 mGy.cm FINDINGS: There is a small hiatal hernia There are calcified left hilar lymph nodes. There was no evidence of thoracic aortic dilatation. There are bilateral segmental lower lobe pulmonary artery filling defects, and small upper lobe pulmo nary artery filling defects indicative of acute bilateral pulmonary embolism. There is no convincing evidence of significant right ventricular strain. No pleural effusions are visualized. There was no evidence of focal pulmonary consolidation. IMPRESSION: 1. Bilateral pulmonary artery filling defects, indicative of acute pulmonary embolism. ACT 112: Negative or not required by law. Electronically signed by: Robin Wilson M.D. 09/29/2019 7:04 PM
[2019-09-29] MEDS ORDERED: HEPARIN SODIUM/DEXTROSE 25,000 UNITS/500 ML BAG IV SCH (19:15)
[2019-09-29] MEDS ORDERED: HEPARIN SOD 5,000 UNIT/0.5 ML VIAL ONE (19:34)
[2019-09-29] MEDS ORDERED: HEPARIN SOD (PORCINE) 1000 UNIT/ML 10 ML VIAL IV ONE (19:45)
--- NOTE | 2019-09-29 21:54 | History & Physical Report ---
Date of Service September 29, 2019 Assessment & Plan (1) Bilateral pulmonary embolism: 64-year-old woman with past medical history of femoral fracture repaired 2 weeks ago here with extensive postop DVT of right lower limb and pulmonary embolism bilateral Bilateral pulmonary emboli Patient with bilateral pulmonary artery filling defects noted on CTA indicative of pulmonary embolism Patient hemodynamically stable, oxygenating well on room air, tachycardic greater than 110, no increased work of breathing Pulmonary embolism severity index class II or low risk 1 to 3% 30-day mortality Continuing heparin drip, will long-term anticoagulation, this does appear to be a provoked VTE however patient recounts the daughter has a history of blood clots and bleeding though she is unsure of any diagnoses We will order coagulopathy work-up to help guide definite versus indefinite anticoagulation We will order echo to assess right heart strain Patient admitted to PCU/telemetry with bedrest, still has extensive clot in right lower extremity we will watch closely for any signs of hemodynamic instabi lity or worsening oxygenation status Femoral fracture Patient is recovering from a fracture, do not believe there is reason to consult Ortho surgery at this time We will hold off on ordering PT OT at this time with extensive right lower limb thrombosis DVT prophylaxis: On heparin drip Fluids/electrolytes/nutrition: Regular diet Disposition: PCU/telemetry on monitor on heparin drip, will transition to oral anticoagulation moving forward Full code (2) DVT (deep venous thrombosis): (3) Closed right femoral fracture: (4) Osteoporosis: History of Present Illness Chief Complaint: PE with extensive DVT of right lower extremity. Primary Care Provider: Jim Gautam MD Stefani Guerrero is a very pleasant 64 year old woman with a past medical history significant for a right femur fracture last month she sustained after a bad fall while mowing her lawn. She had that surgically repaired by Dr. Tan on the 14 of September. Since that time she has been doing well apart from some right leg pain both at the femur and down into her calf. She has been taking tramadol for the pain which is her only prescription medication and has been controlling her pain well. She presented to ortho to get her incision monica removed and was found to have an asymmetrically swollen right lower limb with calf tenderness and redness and swelling. She was sent to emergency department for suspected DVT. On arrival to emergency department she was breathing comfortably and oxygenating well on room air, she was found to be tachycardic with rates as high as 111 and occasionally tachypneic. CTA revealing bilateral pulmonary artery filling defects indicative of acute pulmonary embolism. Lower limb doppler showing extensive DVT of right extremity. Patient was started on heparin drip with bolus. She tells me she is feeling well other than her leg pain and feeling very anxious about this new diagnosis. She denies any respiratory symptoms, any chest pain, any cough, any fevers or chills, any palpitations, any presycnope/syncope, any abdominal pain, nausea or vomiting or any other concerning symptoms or ROS. She takes no prescription medications other than some tramadol she was recently prescribed for her femoral fracture. She has been getting around slowly with the assistance of a walker. She has no major past medical history, she has a history of GERD from a hiatal hernia that was repaired with griffin fundoplication. She has also had her gallbladder out. Of note in her family history she has a daughter who has had both clots and bleeding in the past but she's not sure what the details are. She is a former smoker who quite about 12 years ago, she does not drink, no drug use. Allergies Allergy/AdvReac Type Severity Reaction Status Date / Time Penicillins Allergy Unknown hives Verified 09/29/19 18:48 Home Medications Home Medications Medication Instructions Recorded Confirmed Type calcium carbonate-vitamin D3 1 tab PO QPM 07/03/18 10/01/19 History [Calcium 500 + D] cholecalciferol (vitamin D3) 1,000 unit PO QAM 07/03/18 10/01/19 History [Vitamin D3] cyanocobalamin (vitamin B-12) 1,000 mcg PO QAM 07/03/18 10/01/19 History multivitamin 1 cap PO QAM 07/03/18 10/01/19 History omega 1-ber-rha-fish oil [Fish Oil] 1 cap PO QAM 07/03/18 10/01/19 History pyridoxine (vitamin B6) [Vitamin 25 mg PO QAM 07/03/18 10/01/19 History B-6] zoledronic ktqx-bnolpiez-nfcdd 5 mg IV YEARLY 12/14/18 10/01/19 History [Reclast] tramadol 50 mg PO Q6H PRN #30 tab 09/17/19 10/01/19 Rx acetaminophen 325 mg tablet 650 mg PO Q6H PRN #60 tab 09/28/19 10/01/19 Rx docusate sodium 100 mg capsule 100 mg PO BID #60 cap 09/28/19 10/01/19 Rx lidocaine 5 % topical patch 1 patch TOP DAILY #1 ea 09/28/19 10/01/19 Rx sennosides 8.6 mg-docusate sodium 1 tabcap PO DAILY PRN #30 tab 09/28/19 10/01/19 Rx 50 mg tablet rivaroxaban [Xarelto] See Rx Instructions .ROUTE 09/30/19 10/01/19 Rx .COMPLEX #51 ea Past Med/Surg History Social History (Updated 08/13/19 @ 11:13 by Lorraine Valadez) Preferred Language: Albanian Communication Ability: Effective Heating Unit Mechanic Required: No Beliefs That Will Affect Care: None marital status: Current Living Situation: Spouse Feels Safe at Home: Yes Smoking Status: Former smoker Tobacco Type: cigarettes ; Cigarettes Per Day: QUIT 12 YEARS AGO. HX OF OCC SOCIAL USE ; Second Hand Exposure: No ; Hx Alcohol Use: No Hx Substance Use: No Review of Systems Review of Systems: All systems reviewed & are unremarkable except as noted in HPI & below Physical Exam Physical Exam: Constitutional: Anxious appearing 64-year-old woman lying in bed, conversing easily, in no acute distress Eyes: Extraocular muscle movements intact bilaterally, pupils equal round reactive to light and accommodation ENMT: No unrealized detected Respiratory: Patient is tachypneic currently, very little accessory muscle use, no major increased work of breathing, lung sounds vesicular in all lung man Cardiovascular: Patient is tachycardic, regular rhythm, heart sounds dual, no murmurs rubs skips or gallops, bilateral radial pulses and dorsalis pedis pulses intact and equal Gastrointestinal: Abdomen soft nontender, some suprapubic discomfort as patient tells me she needs to urinate. No masses organomegaly detected Lower extremity: Right lower extremity with impressive swelling, redness of skin, and increased temperature of skin compared to the left, limb is tender to the touch Neuro: Patient awake alert and oriented x4, no focal neuro deficits noted Results & Data Results & Data ([facility]) Vital Signs (Past 12 Hours) Vital Signs Temp Pulse Resp BP Pulse Ox 09/29/19 20:00 104 H 20 139/70 98 09/29/19 19:30 112 H 24 146/85 H 98 09/29/19 19:00 103 H 23 147/103 H 100 09/29/19 18:59 111 H 35 H 156/78 H 98 09/29/19 18:00 77 19 96 09/29/19 16:46 36.7 C 80 19 143/70 H 99 Supervising Physician Co-Signing Physician Notes Attending addendum: I have physically seen this patient, have supervised the medical residents activities, and agree with the H&P unless as otherwise noted. Assessment and Plan: Bilateral pulmonary emboli- The patient will be admitted to telemetry for serial cardiac enzymes, serial EKG's, cardiac rhythm monitoring and a 2-D echocardiogram with Dopplers. Order hypercoagulable work-up Heparin drip per protocol tonight, then convert to oral any coagulation the a.m. lower extremity venous Dopplers with extensive right lower extremity DVT. Echocardiogram to assess for right heart strain. Keep it relative bedrest over the first 12-24 hrs. Closed right femoral fracture- Per Ortho. Remainder of orders and notations as noted Resident Activity Tracking Resident Involvement: Resident Care Provided Care Provided: Adult Hospital Medicine (1) DVT (deep venous thrombosis) Affected thrombotic vein of extremity: unspecified vein of extremity Chronicity: acute DVT location: lower extremity Laterality: right Qualified Code(s): I82.401 - Acute embolism and thrombosis of unspecified deep veins of right lower extremity
[2019-09-30] MEDS ORDERED: ONDANSETRON INJ 2 MG/ML 2 ML VIAL IV PRN (00:21)
[2019-09-30] MEDS ORDERED: ALUMINUM/MAGNESIUM SUSP 30 ML UDC PO PRN (00:21)
[2019-09-30] MEDS: ACETAMINOPHEN 325 MG TAB PO PRN ×2 (00:41→12:23)
[2019-09-30] MEDS: DOCUSATE SODIUM 100 MG CAP PO SCH ×2 (00:41→07:30)
[2019-09-30 02:02] LABS: Partial Thromboplastin Time 84.3 Seconds (21.0-31.0)
[2019-09-30 06:13] LABS: Basophils # (auto) 0.03 K/uL (0-0.2); Basophils % (auto) 0.4 %; Eosinophils # (auto) 0.03 K/uL (0-0.5); Eosinophils % (auto) 0.4 %; Hemoglobin 11.3 g/dL (12.0-16.0); Immature Granulocytes # (auto) 0.02 K/uL (0.00-0.02); Immature Granulocytes % (auto) 0.2 %; Lymphocytes % (auto) 18.6 %; Mean Corpuscular Hemoglobin 33.7 pg (25-34); Mean Corpuscular Hgb Conc 33.2 g/dL (32-36); Mean Corpuscular Volume 101.5 fL (80-100); Mean Platelet Volume 9.8 fL (7.4-10.4); Monocytes # (auto) 0.84 K/uL (0.11-0.59); Monocytes % (auto) 10.4 %; Neutrophils # (auto) 5.65 K/uL (1.4-6.5); Platelet Count 226 K/uL (130-400); RDW Coefficient of Variation 13.8 % (11.5-14.5); RDW Standard Deviation 51.2 fL (36.4-46.3); Red Blood Count 3.35 M/uL (4.2-5.4); White Blood Count 8.07 K/uL (4.8-10.8)
[2019-09-30 06:58] LABS: BUN Creatinine Ratio 20.6 (10-20); Calcium 8.4 mg/dl (8.5-10.1); Creatinine Clr Calc Pharmacy 81.3 ml/min; Est GFR (African American) 107.4; Est GFR (Non-African American) 92.6; Potassium 3.6 mmol/L (3.5-5.1)
[2019-09-30] MEDS ORDERED: PERFLUTREN LIPID MICROSPHERE (DEFINITY) IV ONE (07:06)
[2019-09-30] MEDS: TRAMADOL HCL 50 MG TABLET PO PRN ×2 (07:28→15:22)
[2019-09-30] MEDS ORDERED: PYRIDOXINE HCL 50 MG TAB PO SCH (09:00)
[2019-09-30] MEDS ORDERED: MULTIVITAMIN TAB PO SCH (09:00)
[2019-09-30] MEDS ORDERED: CYANOCOBALAMIN 500 MCG TABLET (VITAMIN B-12) PO SCH (09:00)
[2019-09-30] MEDS ORDERED: OMEGA-3 (PURIFIED FISH OIL) 1 GM CAP PO SCH (09:00)
[2019-09-30] MEDS ORDERED: CHOLECALCIFEROL 1,000 UNITS 25 MCG TAB PO SCH (09:00)
[2019-09-30] MEDS ORDERED: LIDOCAINE 5% 1 PATCH TD SCH (09:00)
[2019-09-30 09:04] LABS: Partial Thromboplastin Ratio 1.9
[2019-09-30] MEDS ORDERED: RIVAROXABAN 15 MG TAB PO ONE (18:00)
--- NOTE | 2019-09-30 18:25 | XCELERA ---
[id number]
--- NOTE | 2019-09-30 18:26 | Discharge Summary ---
Date of Service September 30, 2019 Admission HPI Per Admitting Provider Stefani Guerrero is a very pleasant 64 year old woman with a past medical history significant for a right femur fracture last month she sustained after a bad fall while mowing her lawn. She had that surgically repaired by Dr. Tan on the 14 of September. Since that time she has been doing well apart from some right leg pain both at the femur and down into her calf. She has been taking tramadol for the pain which is her only prescription medication and has been controlling her pain well. She presented to ortho to get her incision monica removed and was found to have an asymmetrically swollen right lower limb with calf tenderness and redness and swelling. She was sent to emergency department for suspected DVT. On arrival to emergency department she was breathing comfortably and oxygenating well on room air, she was found to be tachycardic with rates as high as 111 and occasionally tachypneic. CTA revealing bilateral pulmonary artery filling defects indicative of acute pulmonary embolism. Lower limb doppler sh owing extensive DVT of right extremity. Patient was started on heparin drip with bolus. She tells me she is feeling well other than her leg pain and feeling very anxious about this new diagnosis. She denies any respiratory symptoms, any chest pain, any cough, any fevers or chills, any palpitations, any presycnope/syncope, any abdominal pain, nausea or vomiting or any other concerning symptoms or ROS. She takes no prescription medications other than some tramadol she was recently prescribed for her femoral fracture. She has been getting around slowly with the assistance of a walker. She has no major past medical history, she has a history of GERD from a hiatal hernia that was repaired with griffin fundoplication. She has also had her gallbladder out. Of note in her family history she has a daughter who has had both clots and bleeding in the past but she's not sure what the details are. She is a former smoker who quite about 12 years ago, she does not drink, no drug use. Admission Exam Per Admitting Provider Constitutional: Anxious appearing 64-year-old woman lying in bed, conversing easily, in no acute distress Eyes: Extraocular muscle movements intact bilaterally, pupils equal round reactive to light and accommodation ENMT: No unrealized detected Respiratory: Patient is tachypneic currently, very little accessory muscle use, no major increased work of breathing, lung sounds vesicular in all lung man Cardiovascular: Patient is tachycardic, regular rhythm, heart sounds dual, no murmurs rubs skips or gallops, bilateral radial pulses and dorsalis pedis pulses intact and equal Gastrointestinal: Abdomen soft nontender, some suprapubic discomfort as patient tells me she needs to urinate. No masses organomegaly detected Lower extremity: Right lower extremity with impressive swelling, redness of skin, and increased temperature of skin compared to the left, limb is tender to the touch Neuro: Patient awake alert and oriented x4, no focal neuro deficits noted Principal Diagnosis Multiple bilateral pulmonary embolism Deep vein thrombosis Discharge Exam Constitutional well developed and well nourished; no acute distress Eyes + anicteric sclerae; normal pupil size Respiratory normal respiratory effort, lungs clear to auscultation Cardiovascular Rate/Rhythm: regular rhythm and + tachycardic Musculoskeletal no cyanosis or clubbing, extremities motor strength 5/5 Skin no rashes, warm and dry Neurologic moves all extremities and awake Psychiatric A+Ox3, euthymic affect Discharge Data Allergies Allergy/AdvReac Type Severity Reaction Status Date / Time Penicillins Allergy Unknown hives Verified 09/29/19 18:48 Consultations 09/29/19 19:25 ED Decision to Admit Stat Ordered Studies 09/29/19 17:27 CT angio chest PE protocol Stat Hospital Course (1) Bilateral pulmonary embolism: Stefani Guerrero is a 64 year old female admitted to [facility] overnight due to right leg swelling and pain after recent femoral fracture surgery. Deep vein thrombosis was confirmed on ultrasound and subsequent CT scan for pulmonary embolism (performed due to tachycardia) showed multiple bilateral pulmonary emboli. No right heart strain on echo or EKG. She was initially treated with IV heparin which was transitioned to Xarelto on discharge. She was observed overnight and although her blood pressure was 106/72 on discharge she was asymptomatic with this, it was similar to her last discharge BP and she had no shortness of breath on exertion. I was informed by her pharmacy after her discharge that Xarelto is $300 a month on her insurance however she was given a coupon for the first month free this may have to be addressed on follow up with her PCP. She was advised regarding bleeding risks of Xarelto and not to use NSAIDs with this. Although this DVT would be deemed provoked since she had recent femoral fracture surgery and she was inappropriately off Lovenox at the time a hypercoagulation workup was sent on admission. She was recommended to follow up with her PCP regarding results of this (prothrombin gene mutation and Factor V leiden) Incidental note made of macrocytosis with mild anemia and would recommend B12 level if this has not been recently performed or alternatively repeating her CBC in approximately 4-8 weeks. Given original fracture appears atypical bisphosphonate-related would recommend stopping her Reclast. This was left on her medication list at present as she plans on discussing it more with her PCP. (2) DVT (deep venous thrombosis): (3) Closed right femoral fracture: (4) Osteoporosis: Total Time Total Time Spent Total Time Spent (In Minutes): 45 Total Time Includes: Examination of the Patient, Discharge Planning and Medication Reconciliation Discharge Plan Discharge Items Patient Disposition: Home - Self-Care Reason For Visit: Right leg swelling and pain Discharge Diagnosis: Multiple bilateral pulmonary embolism Deep vein thrombosis Activity: Resume your previous activity Weightbearing: Right partial Non-emergency contact: Primary Care Provider and Surgeon Call non-emergency contact if: you have any medication questions and your symptoms worsen Follow-up/Referrals: Jim Gautam III, MD [Primary Care Provider] - (1-2 weeks) Diet: Regular Addtl Attending Provider Instructions: You were admitted to [facility] overnight due to right leg swelling and pain after recent femoral fracture surgery. Deep vein thrombosis was confirmed on ultrasound and subsequent CT scan for pulmonary embolism showed multiple bilateral pulmonary emboli. You were initially treated with an intravenous heparin drip and subsequently transitioned to Xarelto. Use MOHAN hose stockings on this leg to help with any pain. Do not use NSAIDs (over the counter pain medication other than acetaminophen) while on Xarelto without the guidance of your physician as this can increase your risk of bleeding. If you notice any external bleeding apply pressure as usual but if you are unable to stop the bleeding please go to the ER. If you hit your head while taking Xarelto please also go to the ER as this medication increases your risk of bleeding. Please follow up with your primary care physician to discuss duration of Xarelto treatment 3-6 months for provoked DVT and PE and follow up hypercoagulable workup ordered on admission. Pending Studies at Discharge: Yes (hypercoaulable workup) Stand-Alone Forms: My [facility] Medications and DC Order Prescriptions: New Xarelto 15 mg (42)- 20 mg (9) tablets,dose pack See Rx Instructions .ROUTE .COMPLEX Qty: 51 RF: 0 Continued docusate sodium 100 mg capsule 100 mg PO BID Qty: 60 RF: 0 lidocaine [Lidoderm] 5 % adhesive patch,medicated 1 patch TOP DAILY Qty: 1 RF: 0 acetaminophen 325 mg tablet 650 mg PO Q6H PRN (Reason: pain) Qty: 60 RF: 0 sennosides-docusate sodium [Senokot-S] 8.6-50 mg tablet 1 tabcap PO DAILY PRN (Reason: constipation) Qty: 30 RF: 0 pyridoxine (vitamin B6) [Vitamin B-6] 25 mg Tablet 25 mg PO QAM RF: 0 multivitamin Capsule 1 cap PO QAM RF: 0 cholecalciferol (vitamin D3) [Vitamin D3] 1,000 unit Capsule 1,000 unit PO QAM RF: 0 calcium carbonate-vitamin D3 [Calcium 500 + D] 500 mg(1,250mg) -200 unit Tablet 1 tab PO QPM RF: 0 omega 9-krt-fcw-fish oil [Fish Oil] 1,000 mg (120 mg-180 mg) Capsule 1 cap PO QAM RF: 0 cyanocobalamin (vitamin B-12) 1,000 mcg Capsule 1,000 mcg PO QAM RF: 0 zoledronic pwao-qghsstsr-nxubd [Reclast] 5 mg/100 mL piggyback 5 mg IV YEARLY RF: 0 tramadol 50 mg tablet 50 mg PO Q6H PRN (Reason: pain) Qty: 30 RF: 0 Discharge Orders: Discharge Order (Routine); Ordered 09/30/19 Ordered By: Ovidio Moura Admission Data Admit Date/Time: 09/30/19 00:05 Attending Provider: Ovidio Moura Admit Provider: Ventura Pang Primary Care Provider: Jim Gautam III Other Providers: Deangelo Medina Other Interventions: Discharge Summary Assessment (RN) Last Done: 09/30/19 17:27 DC Date/Time DO NOT enter until pt leaves facility: 09/30/19 18:28 Coding Level of Care Code D/C Day Management >30 mins Diagnoses Bilateral pulmonary embolism I26.99 DVT (deep venous thrombosis) I82.401 Affected thrombotic vein of extremity: unspecified vein of extremity Chronicity: acute DVT location: lower extremity Laterality: right Closed right femoral fracture S72.91XA Osteoporosis M81.0
[2019-09-30] MEDS ORDERED: CALCIUM 600MG + VIT D 400 IU TAB PO SCH (21:00)
--- NOTE | 2019-09-30 22:16 | Electrocardiogram Report ---
Test Reason : Blood Pressure : / mmHG Vent. Rate : 079 BPM Atrial Rate : 079 BPM P-R Int : 156 ms QRS Dur : 074 ms QT Int : 386 ms P-R-T Axes : 062 023 012 degrees QTc Int : 442 ms Normal sinus rhythm Normal ECG When compared with ECG of 14-SEP-2019 18:00, No significant change was found Confirmed by Jorge Mahoney ([id number]) on 09/30/2019 10:16:21 PM Referred By: REFERRED SELF Confirmed By:Jorge Mahoney
--- NOTE | 2019-09-30 22:42 | Electrocardiogram Report ---
Test Reason : Blood Pressure : / mmHG Vent. Rate : 092 BPM Atrial Rate : 092 BPM P-R Int : 158 ms QRS Dur : 074 ms QT Int : 358 ms P-R-T Axes : 069 019 022 degrees QTc Int : 442 ms Normal sinus rhythm with sinus arrhythmia Normal ECG When compared with ECG of 29-SEP-2019 17:46, No significant change was found Confirmed by Jorge Mahoney ([id number]) on 09/30/2019 10:42:58 PM Referred By: REFERRED SELF Confirmed By:Jorge Mahoney
--- NOTE | 2019-10-01 22:30 | Billing Data ---
Date of Service October 01, 2019 Coding Level of Care Code 52082 Initial Inpt Care Lvl 3
== END 2019-09-30 18:28 | disposition home or self-care (01) | DRG 176 ==
LOC: ED 16:45 → 2S 22:37 → SUATTDRO 09-30 00:05

== ENCOUNTER 2020-02-29 05:23 | Inpatient (IN) ==
[2020-02-14 15:38] LABS: Basophils # (auto) 0.02 K/uL (0-0.2); Basophils % (auto) 0.4 %; Eosinophils # (auto) 0.04 K/uL (0-0.5); Eosinophils % (auto) 0.8 %; Hematocrit (blood only) 43.1 % (37-47); Hemoglobin 14.5 g/dL (12.0-16.0); Immature Granulocytes # (auto) 0.01 K/uL (0.00-0.02); Immature Granulocytes % (auto) 0.2 %; Lymphocytes # (auto) 1.53 K/uL (1.2-3.4); Lymphocytes % (auto) 31.7 %; Mean Corpuscular Hemoglobin 32.8 pg (25-34); Mean Corpuscular Hgb Conc 33.6 g/dL (32-36); Mean Corpuscular Volume 97.5 fL (80-100); Mean Platelet Volume 10.7 fL (7.4-10.4); Monocytes # (auto) 0.41 K/uL (0.11-0.59); Monocytes % (auto) 8.5 %; Neutrophils # (auto) 2.81 K/uL (1.4-6.5); Neutrophils % (auto) 58.4 %; Platelet Count 213 K/uL (130-400); RDW Coefficient of Variation 14.4 % (11.5-14.5); RDW Standard Deviation 51.4 fL (36.4-46.3); Red Blood Count 4.42 M/uL (4.2-5.4); White Blood Count 4.82 K/uL (4.8-10.8)
[2020-02-14 15:47] LABS: INR 1.1 (0.9-1.1); Partial Thromboplastin Time 27.1 Seconds (21.0-31.0); Prothrombin Time 11.2 Seconds (9.0-12.0)
[2020-02-14 16:22] LABS: BUN Creatinine Ratio 26.6 (10-20); Blood Urea Nitrogen 26 mg/dl (7-18); Calcium 9.5 mg/dl (8.5-10.1); Carbon Dioxide 26 mmol/L (21-32); Chloride 108 mmol/L (98-107); Est GFR (Non-African American) 62.2; Glucose 91 mg/dl (70-99); Potassium 4.1 mmol/L (3.5-5.1); Sodium 141 mmol/L (136-145)
--- NOTE | 2020-02-21 13:06 | Anesthesiology Consultation ---
Date of Service February 21, 2020 Assessment & Plan (1) Encounter for pre-operative examination: - Per assessment on 02/20: Travel screen negative. No known COVID-19 positive contacts or current COVID-19 related symptoms. Surgeon arranging preop COVID sree ting (scheduled 02/22; [place] Awaiting results. - Xarelto instructions per surgeon/prescriber. 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 This is clearly old remnant thrombus and not acute DVT. At this point, it is medically reasonable to discontinue her anticoagulation long enough to surgically repair her known left femur stress fracture and avoid more severe fracture complications. At this point I would recommend discontinuing therapeutic dosing of Xarelto 20 mg daily 3 days prior to planned orthopedic surgery. For the first 3-4 days postoperatively, I would recommend enoxaparin prophylactic dosing for DVT of 40 mg subcu daily. This is to ensure that if there is any postoperative bleeding or need for repeat surgical intervention, this can be easily performed by simply stopping enoxaparin given its short half life. Once she is past the first 3-4 days postoperatively, so long as there is no overt need to discontinue anticoagulation, at that point I would simply convert her back to therapeutic dosing of Xarelto 20 mg daily and stop enoxaparin. This dosing of Xarelto would certainly get her through the postoperative risk period for DVT while simultaneously continuing her goal of 6 months of therapeutic anticoagulation given prior pulmonary embolus in September 2019. I have discussed this with the patient as well, I believe the 3 of us are all on the same page for surgery and prophylaxis/treatment of venous thromboembolism." Surgeon's office aware of PCP recommendations. Chart Review Chart Review: Acceptable Risk for Surgery and Patient NOT seen in Pre Admission Testing History Surgery Operation Date: 02/29/20 07:00 Proposed Procedures p Removal Distal Interlocking Screws Right Femur, - Alek Tan MD s Profolactic Rodding Left Femur - Alek Tan MD Height/Weight Height: 5 ft 3 in Weight: 76.204 kg Allergies Allergy/AdvReac Type Severity Reaction Status Date / Time Penicillins Allergy Unknown hives Verified 02/21/20 11:49 zoledronic acid AdvReac Severe osteoporosis/midshaft Verified 02/21/20 12:49 [From Reclast] femur fracture- advised to avoid Medications Home Medications Medication Instructions Recorded Confirmed Last Taken calcium carbonate-vitamin D3 1 tab PO QPM 07/03/18 02/21/20 09/14/19 [Calcium 500 + D] cholecalciferol (vitamin D3) 2,000 unit PO QAM 07/03/18 02/21/20 09/14/19 [Vitamin D3] cyanocobalamin (vitamin B-12) 1,000 mcg PO QAM 07/03/18 02/21/20 09/14/19 multivitamin 1 cap PO QAM 07/03/18 02/21/20 09/14/19 omega 5-frr-rdv-fish oil [Fish Oil] 1 cap PO QAM 07/03/18 02/21/20 09/14/19 pyridoxine (vitamin B6) [Vitamin 25 mg PO QAM 07/03/18 02/21/20 09/14/19 B-6] acetaminophen 325 mg tablet 650 mg PO Q6H PRN #60 tab 09/28/19 02/21/20 Unknown docusate sodium 100 mg capsule 100 mg PO BID #60 cap 09/28/19 02/21/20 Unknown enoxaparin 40 mg/0.4 mL 40 mg SUBCUT DAILY #4 syr 02/17/20 02/21/20 Unknown subcutaneous syringe rivaroxaban [Xarelto] 20 mg PO PM 02/21/20 02/21/20 Unknown Past Medical History Medical History Bilateral pulmonary embolism (09/29/19) 09/2019 (post op) - on xarelto Deep vein thrombosis (DVT) of right lower extremity (09/29/19) 09/2019 (post op) - on xarelto GERD without esophagitis On anticoagulant therapy Osteoporosis Pulmonary embolism h/o - 09/2019 post op - on xarelto Vertigo Past Family History Family History Other Breast cancer Coronary heart disease Diabetes Denies family history of Ovarian cancer Past Surgical History Surgical History History of bilateral tubal ligation History of bladder surgery History of cholecystectomy History of colonoscopy History of endoscopic sinus surgery History of Phillip fundoplication History of surgery on extremity Right Intramedullary Martín Femur: 09/15/19: SAB x 1 attempt at L3 at [facility] Status post myringotomy with insertion of tube RIGHT EAR Social History Smoking Status: Former smoker tobacco type: cigarettes Smoking cigarettes per day: QUIT 15 YEARS AGO. HX OF OCC SOCIAL USE Do You Dip or Chew Tobacco: No Hx Alcohol Use: No Hx Substance Use: No substance use type: does not use Testing Laboratory Results 02/14/20 11:27 02/14/20 11:27 PT 11.2 Seconds (9.0-12.0) 02/14/20 11: INR 1.1 (0.9-1.1) 02/14/20 11:27 APTT 27.1 Seconds (21.0-31.0) 02/14/20 11:27 Blood Type A Positive 02/14/20 11:35 Antibody Screen NEGATIVE 02/14/20 11:35 Electrocardiogram Date: 09/30/19 NSR with sinus arrhythmia at 92bpm. Echocardiogram Date: 09/30/19 EF 60-65%. No RWMA. Moderate cLVH. No significant valvular diseaes. Other Testing Chest CTA: 12/27/19: There is no evidence of pulmonary embolus in the main, lobar, or segmental pulmonary arteries. Pulmonary emboli seen on 09/29/2019 resolved. There is no airspace consolidation or pleural effusion. There is a 2.4 x 2.5 cm lobulated low-attenuation lesion arising from the right neural foramen at T10-T11. Additional smaller similar-appearing lesions arise from the left neural foramen at T10-T11 and the right neural foramen at T11-T12. These are pathologically indeterminant, and could represent large pseudomeningoceles or possibly nerve sheath tumors. Correlation with a contrast-enhanced MRI of the thoracic spine is recommended for further assessment. Report ordered/reviewed by PCP. Thoracic spine MRI ordered to followup (done 01/14/20). RLE Venous doppler: 12/27/19: FINDINGS: Focal noncompressible area within the distal right superficial femoral vein consistent with thrombus. There is also narrowing of the peroneal veins which could be chronic. The right common femoral, popliteal, posterior tibial, and intervertebral veins are patent. IMPRESSION: Acute DVT involving the distal right superficial femoral vein. 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 The largest is seen on the right at T10-T11. No enhancing mass lesion is identified. Degenerative disc disease as above. There is no significant central canal stenosis throughout the thoracic region. The thoracic spinal cord is normal in morphology and signal intensity. RLE venous ultrasound: 02/01/20: FINDINGS: Chronic appearing nonocclusive deep venous thrombosis is again seen in the distal superficial femoral vein. The common femoral vein, popliteal vein, and the proximal portions of the superficial femoral vein are patent and normally compressible. The greater saphenous vein and the profunda femoris vein at the junction with the common femoral vein are clear. The visualized calf veins are patent. IMPRESSION: Chronic appearing nonocclusive deep venous thrombosis is again seen in the distal superficial femoral vein. This is similar to the 12/27/2019 examination.
[2020-02-29] MEDS ORDERED: CEFAZOLIN 2000MG 2,000 MG/15 ML SYR IV SCH (06:00)
[2020-02-29] MEDS ORDERED: LR 500ML BOLUS, THEN 15ML/HR IV SCH (06:00)
[2020-02-29] MEDS ORDERED: LACTATED RINGER'S 1,000 ML IV SCH (06:00)
[2020-02-29] MEDS ORDERED: BUPIVACAINE 0.5 % 5 MG/1 ML PF 10ML VIAL ONE (06:19)
--- NOTE | 2020-02-29 06:38 | History & Physical Bridge Note ---
Date of Service February 29, 2020 History & Physical Bridge Note I have examined the patient, reviewed the History & Physical and in the interval since the performance of the History & Physical I have noted the following changes of clinical significance: no changes noted
[2020-02-29] MEDS ORDERED: MIDAZOLAM HCL 1 MG/ML 2ML VIAL ONE ×3 (06:44→08:49)
[2020-02-29] MEDS ORDERED: fentaNYL citrate 100 MCG/2 ML VIAL ONE (06:45)
[2020-02-29] MEDS ORDERED: ONDANSETRON INJ 2 MG/ML 2 ML VIAL IV PRN ×2 (07:07→11:19)
[2020-02-29] MEDS ORDERED: ATROPINE SULFATE 0.1 MG/ML 10ML SYR IV PRN (07:07)
[2020-02-29] MEDS ORDERED: ePHEDrine sulfate 50 MG/ML AMP IV PRN (07:07)
[2020-02-29] MEDS ORDERED: fentaNYL citrate 100 MCG/2 ML VIAL IV PRN (07:07)
[2020-02-29] MEDS ORDERED: PROPOFOL IV EMULSION 10 MG/ML 20 ML VIAL IV ONE ×4 (07:23→09:33)
[2020-02-29] MEDS ORDERED: LIDOCAINE HCL 2% 2 ML VIAL/AMP(20MG/ML) INFIL ONE (07:23)
[2020-02-29] MEDS ORDERED: ONDANSETRON INJ 2 MG/ML 2 ML VIAL ONE (07:23)
[2020-02-29] MEDS ORDERED: BUPIVACAINE 0.5 % 5 MG/1 ML MPF 30ML VIAL ONE (07:25)
[2020-02-29] MEDS ORDERED: LIDOCAINE/EPINEPHRINE 1% 20 ML VIAL ONE (07:26)
[2020-02-29] MEDS ORDERED: CEFAZOLIN 1000MG 1,000 MG/7.5 ML SYR IV STA (08:45)
--- NOTE | 2020-02-29 10:12 | Operative Report ---
Post Operative Report Pre & Post Diagnosis Operation Date: 02/29/20 07:00 Pre-Op Diagnosis: Retained Hardware Right Femur, Stress Fracture Left Femur Post-Op Diagnosis: Retained Hardware Right Femur, Stress Fracture Left Femur I identified the patient and participated in the time-out.: Yes Procedure Operation Date: 02/29/20 07:00 Actual Procedures p Removal Distal Interlocking Screws Right Femur,(Right) - Alek Tan MD s Profolactic Rodding Left Femur(Left) - Alek Tan MD Surgeon Alek Tan M.D. Claim Processing Specialist Linda Fajardo PA-C Estimated Blood Loss 100 Findings Consistent with Post-Op Diagnosis Specimens None Anesthesia Type Spinal MAC Complications none Description of Procedure Patient was taken to the operating room, placed under spinal anesthesia, given 2gm IV Ancef for surgical prophylaxis. Time out performed, prepped and draped in routine sterile fashion. I was present during the entire case and assisted with positioning, hardware removal, tissue retraction, hardware implantation and closure. Please see Dr. Tan's operative report for further detail. Patient was awakened and taken to the recovery room in stable condition. I attest to the content of the Intraoperative Record and any orders documented therein. Any exceptions are noted below.
--- NOTE | 2020-02-29 10:18 | Fluoroscopy Report ---
FL femur RT 2V CLINICAL HISTORY: REMOVAL OF DISTAL SCREW RT FEMUR COMPARISON STUDY: None. FLUOROSCOPY TIME: 2 seconds. FINDINGS: Single fluoroscopic spot images of the distal right femur demonstrates removal of the 2 dis bisi screws. An intramedullary noni persists. IMPRESSION: Fluoroscopy provided for removal of 2 distal right femoral screws. ACT 112: Negative or not required by law. Electronically signed by: David Soto M.D. 02/29/2020 10:17 AM
--- NOTE | 2020-02-29 10:22 | Operative Report ---
Post Operative Report Pre & Post Diagnosis Operation Date: 02/29/20 07:00 Pre-Op Diagnosis: Retained Hardware Right Femur, Stress Fracture Left Femur Post-Op Diagnosis: Retained Hardware Right Femur, Stress Fracture Left Femur I identified the patient and participated in the time-out.: Yes Procedure Operation Date: 02/29/20 07:00 Actual Procedures p Removal Distal Interlocking Screws Right Femur,(Right) - MD natasha Nielson Prophylactic Rodding Left Femur(Left) - Alek Tan MD Surgeon Alek Tan MD Embedded Systems Designer Linda Fajardo no qualified resident or fellow available Estimated Blood Loss 100 Findings Consistent with Post-Op Diagnosis Specimens None Anesthesia Type Spinal MAC Complications none Disposition Accompanied Patient To Recovery: No Disposition: Recovery Room Indications Patient 64. She is status post IM noni of a right femur fracture which was felt to be secondary to to bisphosphonate use. This was an atypical fracture. This has healed well however she is reporting some irritation distal medial thigh which is likely secondary to the distal interlocking screws and would like to have them removed. She also has left thigh pain and the work-up there with x- rays bone scan and MRI documents a lateral cortical evolving stress fracture. She is taken to surgery for a prophylactic nailing of the left femur to prevent fracture. Description of Procedure Informed consent obtained. Patient identified. She identified the operative site as the right and left femurs. They were marked separately and individually by myself. I identified the patient. Preoperative surgical timeout was performed the preop dose of IV antibiotics was given. She was positioned supine on the fracture table. The right leg was prepped and draped in the usual sterile fashion. DVT prophylaxis with mechanical devices intraoperatively and postoperatively with early mobility mechanical devices and Lovenox bridging over to Xarelto. She has a history of a DVT status post her primary surgery and care has been coordinated with Dr. Gautam regarding the timing of the surgery and management of her anticoagulation. The exam demonstrated full movement of the right hip and knee as well as the left hip and knee. Fluoroscopic guidance was utilized throughout both procedures. The prior lateral incision was opened on the right distal femur and extended for a short distance proximally and distally. Electrocautery was utilized onto the subcutaneous tissues and the iliotibial band was at open in line with the incision. Cautery and blunt dissection were utilized to identify the 2 screws which were then removed. Hemostasis achieved with cautery. The wound was irrigated. A medical device sales representative fluoroscopic image documented removal of the distal interlocking screws. The iliotibial band was closed with 2-0 Vicryl in interrupted fashion. The skin was closed with 2-0 Vicryl and monica. 7 cc of local anesthetic were injected. A soft sterile dressing was applied. The sterile field was kept sterile. The scrub nurse remained sterile. The surgeon and biology laboratory assistant broke scrub and took down the sterile field on the right leg. She was positioned with the right leg in the well leg tafoya hip flexed at 90 physiologic abduction and external rotation. Padding to protect the peroneal nerve in the leg was secured. The torso was shifted to the left and a papoose was utilized to hold her arms which were padded abundantly with foam. Strap applied. The left leg was then placed into gentle longitudinal traction with slight internal rotation. The left leg was then prepped and draped in the usual sterile fashion the shower curtain was utilized. Fluoroscopic images confirmed adequate visualization. After localizing using fluoroscopy proximally an incision was made about 6 cm in length. Electrocautery was utilized down to the subcutaneous tissues. The gluteal fascia was identified and opened in line with the incision just proximal to the tip of the greater trochanter. A guidepin was inserted and adjusted x2 to be in the appropriate location tip of the greater trochanter in line with the shaft of the femur. This was advanced to the lesser trochanter and then carefully overreamed with a 17 mm reamer. A guide noni was inserted and confirmed to be intramedullary in 2 planes. The noni length was selected to be 360 using the guide. She had a 10 x 360 noni on the contralateral side with an 85 mm blade. And when I had began reaming at 8.5. Proceeded by 1 mm increments up to 10 5 at which point there was strong cortical chatter throughout the isthmus. Half millimeter increments were then done up to 11.5 with strong cortical chatter over a long portion of the isthmus. The proximal metaphysis was dilated with 15 mm and 17 mm reamers down to the level of the lesser trochanter. A 10 x 360 noni was inserted under hand power and seated with gentle blows of the mallet. A percutaneous anteversion pin was inserted using fluoroscopic guidance. After aligning the noni to the appropriate depth an accessory lateral incision was made and the outrigger was applied. This was advanced down to the cortex of the bone i.e. the triple trocar. The guidepin was inserted and adjusted x2 to be in the center center position. The lateral cortex was overreamed but found to be very hard. Careful reaming was done with frequent irrigation and cleaning of the reamer. The blade was selected to be 90. The triple triple reamer was inserted and advanced to the was buried. This was followed by insertion of the 90 mm spiral blade until it was almost fully seated. It was approximately 10 mm from the apex of the femoral head centered in both AP and lateral views. The locking mechanism was advanced. Turf Keeper images AP and lateral of the stress fracture area distal femur and proximal femur were obtained. The apparatus was removed. I did not think the distal interlocking was necessary. The wounds were irrigated copiously with sterile saline and meticulous hemostasis was performed. The distal incision was closed with 2-0 Vicryl for the subcutaneous tissues and monica. The proximal incision was closed with 0 Vicryl for the gluteal fascia 0 Vicryl for the subcutaneous fascia to close the space. The subcutaneous tissues were closed with 2 oh and monica. Local anesthetic was injected into both incisions. The leg was cleaned with wet and dries but sponges and a soft sterile dressing was applied. The patient was removed from the fracture table transferred to the hospital bed in stable condit ion. Prior to the start of the left surgery the Santos catheter was inserted and removed at the end of the case. She was taken to the care of room stable condition. There were no complications. Counts were correct. Blood loss was 100 cc. No specimens. The components inserted were the Synthes 10 x 3 6 the trochanteric nail with a 90 mm spiral blade. At the conclusion of the procedure spoke to the patient's family informed of my findings and postop instructions were given. She will be on her Lovenox 40 mg subcu daily for 3 to 5 days. If she is doing well and does not need any further operative intervention or have any bleeding problems she would then be transitioned to her Xarelto. This is per Dr. Gautam's recommendations. She received a routine course of postop IV antibiotics. She may weight-bear as tolerated with walker or crutches on both lower extremities. I attest to the content of the Intraoperative Record and any orders documented therein. Any exceptions are noted below.
--- NOTE | 2020-02-29 10:22 | Fluoroscopy Report ---
FL hip LT 2-3V CLINICAL HISTORY: LONG TROCH NAIL. COMPARISON STUDY: None. FLUOROSCOPY TIME: 2 minutes and 35 seconds. FINDINGS: 7 fluoroscopic spot images of the left femur demonstrate placement of an intramedullary noni within interlocking femoral neck pin. The hardware is intact. IMPRESSION: Fluoroscopy provided for placement of a left femoral intramedullary noni within interlocki ng femoral neck pin. ACT 112: Negative or not required by law. Electronically signed by: David Soto M.D. 02/29/2020 10:21 AM
[2020-02-29] MEDS ORDERED: MAGNESIUM HYDROXIDE SUSP 30 ML UDC PO PRN (11:19)
[2020-02-29] MEDS ORDERED: NALOXONE HCL 0.4 MG/1 ML VIAL/CARP IV PRN (11:19)
[2020-02-29] MEDS ORDERED: HydrALAZINE HCL 20 MG/ML VIAL IV PRN (11:19)
[2020-02-29] MEDS ORDERED: METOCLOPRAMIDE HCL INJ 5 MG/ML 2 ML VIAL IV PRN (11:19)
[2020-02-29] MEDS ORDERED: HYDROmorphone INJ 0.5 MG/0.5 ML SYR IV PRN (11:19)
[2020-02-29] MEDS ORDERED: OXYCODONE HCL IR 5 MG TAB (IMMEDIATE RELEASE) PO PRN (11:19)
[2020-02-29] MEDS ORDERED: bisacodyL 10 MG SUPP PR PRN (11:19)
--- NOTE | 2020-02-29 11:29 | Anesthesiology Progress Note ---
Date of Service February 29, 2020 Anesthesia Post Procedure Vital Signs Vital Signs: Temp Pulse Pulse Resp BP BP Pulse Ox 02/29/20 11:08 75 16 118/80 100 02/29/20 10:50 78 20 130/89 97 02/29/20 10:40 76 18 122/74 99 02/29/20 10:30 36.1 C L 74 15 116/74 96 02/29/20 10:20 77 16 117/75 96 02/29/20 10:11 36.1 C L 93 H 24 112/69 95 02/29/20 06:30 90 18 177/96 H 99 02/29/20 05:52 37.1 C 83 16 164/92 H 97 Transfer of Care Handoff Completed per policy Notes Mental Status: alert / awake / arousable and participated in evaluation Nausea / Vomiting: adequately controlled Pain: adequately controlled Airway Patency, RR, SpO2: stable & adequate BP & HR: stable & adequate Hydration State: stable & adequate Neuraxial Anesthesia: was administered and sensory block is resolving Anesthetic Complications: no major complications apparent and Pt Satisfied with anesthetic care
[2020-02-29] MEDS: KETOROLAC TROMETHAMINE 15 MG/ML VIAL IV SCH ×2 (11:55→17:38)
[2020-02-29] MEDS: ACETAMINOPHEN 500 MG TAB PO SCH ×2 (14:15→22:19)
[2020-02-29] MEDS: SODIUM CHLORIDE 0.9% 1000ML 1,000 ML IV SCH (14:15)
[2020-02-29] MEDS: CEFAZOLIN 2000MG 2,000 MG/15 ML SYR IV SCH ×2 (14:41→22:20)
[2020-02-29] MEDS: TRAMADOL HCL 50 MG TABLET PO PRN ×2 (17:37→22:19)
--- NOTE | 2020-02-29 18:18 | Progress Notes ---
DATE: 02/29/2020 Resting in bed. Actually reports less pain than she had before surgery. No significant problems are noted. She has a 1+ palpable posterior tibial pulses bilaterally with normal sensation in both feet. She can flex and extend her ankles and toes with normal strength. She is afebrile. Her vital signs are stable. She is status post screw removal of her right distal femur and a prophylactic nailing of her left femur for a suspected bisphosphonate impending atypical stress fracture. She has noted diminished grinding in the right thigh area consistent with screw removal. She is overall very pleased. I discussed her surgical findings. Plan is to restart her Lovenox tonight. She can weightbear as tolerated with crutches or walker. IV antibiotics. DVT prophylaxis. She also had a DVT and PE, status post her first surgery and has been on anticoagulation.
[2020-02-29] MEDS: DOCUSATE SODIUM 100 MG CAP PO SCH (20:40)
[2020-02-29] MEDS ORDERED: CALCIUM 600MG + VIT D 400 IU TAB PO SCH (21:00)
[2020-02-29] MEDS ORDERED: SENNA 8.6 MG TAB PO SCH (21:00)
[2020-02-29] MEDS ORDERED: ENOXAPARIN INJ 40 MG/0.4 ML SYR SQ SCH (22:15)
[2020-03-01] MEDS: KETOROLAC TROMETHAMINE 15 MG/ML VIAL IV SCH ×2 (00:19→05:40)
[2020-03-01] MEDS: SODIUM CHLORIDE 0.9% 1000ML 1,000 ML IV SCH (00:45)
[2020-03-01] MEDS: ACETAMINOPHEN 500 MG TAB PO SCH ×2 (05:39→14:10)
[2020-03-01] MEDS: TRAMADOL HCL 50 MG TABLET PO PRN (05:39)
[2020-03-01 06:21] LABS: Hematocrit (blood only) 34.4 % (37-47); Hemoglobin 11.2 g/dL (12.0-16.0); Mean Corpuscular Hgb Conc 32.6 g/dL (32-36); Mean Corpuscular Volume 98.3 fL (80-100); Mean Platelet Volume 10.2 fL (7.4-10.4); Platelet Count 167 K/uL (130-400); RDW Coefficient of Variation 14.2 % (11.5-14.5); RDW Standard Deviation 51.1 fL (36.4-46.3)
[2020-03-01 07:12] LABS: BUN Creatinine Ratio 20.6 (10-20); Calcium 8.2 mg/dl (8.5-10.1); Est GFR (African American) 82.2; Est GFR (Non-African American) 70.9
[2020-03-01] MEDS: MULTIVITAMIN TAB PO SCH ×2 (08:56→10:36)
[2020-03-01] MEDS: CYANOCOBALAMIN 500 MCG TABLET (VITAMIN B-12) PO SCH ×2 (08:56→10:36)
[2020-03-01] MEDS: OMEGA-3 (PURIFIED FISH OIL) 1 GM CAP PO SCH ×2 (08:56→10:36)
[2020-03-01] MEDS: CHOLECALCIFEROL 1,000 UNITS 25 MCG TAB PO SCH ×2 (08:57→10:37)
[2020-03-01] MEDS ORDERED: PYRIDOXINE HCL 50 MG TAB PO SCH (09:00)
[2020-03-01] MEDS: DOCUSATE SODIUM 100 MG CAP PO SCH ×2 (09:01→10:36)
--- NOTE | 2020-03-01 09:30 | Orthopedic Progress Note ---
Date of Service March 01, 2020 Assessment & Plan (1) Painful orthopaedic hardware: POD 1 - s/p hardware removal right femur OOB as tolerated with assistance of a walker WBAT RLE Full ROM of all joints Pain medication as needed Ice and elevate PRN swelling Lovenox daily for DVT prophylaxis. Teds bilateral lower extremities and AV impulse boots bilaterally for DVT prophylaxis. Regular diet as ordered. PT/OT as ordered Plans for discharge to home today and to start outpatient PT on 03/06/20. (2) Stress fracture, left femur, initial encounter for fracture: POD 1 - Prophylactic rodding left femur. OOB as tolerated with assistance of a walker WBAT RLE Full ROM of all joints Pain medication as needed Ice and elevate PRN swelling Lovenox daily for DVT prophylaxis. Teds bilateral lower extremities and AV impulse boots bilaterally for DVT prophylaxis. Regular diet as ordered. PT/OT as ordered Plans for discharge to home today and to start outpatient PT on 03/06/20. Admission and Anticipated Discharge Date Admission Date: February 29, 2020 Anticipated date of discharge: 03/01/20 Subjective Patient doing well. Feels better today that she did before surgery. States minimal to no pain with ambulation, much improved since prior to surgery. Physical Exam Physical Exam: Dressings left thigh and right knee are clean, dry, intact. No distal edema bilateral lower extremities. Distal pulses 1+, sensation normal, strength normal. No knee effusions or tenderness to either knee. Tolerates gentle log rolling of both hips. Results & Data ([facility]) Vital Signs (Past 12 Hours) Vital Signs Temp Pulse Resp BP Pulse Ox 03/01/20 07:18 36.6 C 70 17 108/69 96 03/01/20 02:51 36.2 C L 80 16 127/87 94 02/29/20 23:31 36.6 C 83 16 123/72 93 Laboratory Results 03/01/20 03/01/20 Range/Units 05:57 05:57 WBC 5.60 (4.8-10.8) K/uL RBC 3.50 L (4.2-5.4) M/uL Hgb 11.2 L (12.0-16.0) g/dL Hct 34.4 L (37-47) % MCV 98.3 (80-100) fL MCH 32.0 (25-34) pg MCHC 32.6 (32-36) g/dL RDW Std Deviation 51.1 H (36.4-46.3) fL RDW Coeff of Oleg 14.2 (11.5-14.5) % Plt Count 167 (130-400) K/uL MPV 10.2 (7.4-10.4) fL Sodium 139 (136-145) mmol/L Potassium 4.0 (3.5-5.1) mmol/L Chloride 108 H (98-107) mmol/L Carbon Dioxide 26 (21-32) mmol/L Anion Gap 5.0 (3-11) BUN 18 (7-18) mg/dl Creatinine 0.87 (0.6-1.2) mg/dl Est Cr Clr Drug Dosing 65.0 ml/min Est GFR ( Amer) 82.2 Est GFR (Non-Af Amer) 70.9 BUN/Creatinine Ratio 20.6 H (10-20) Glucose 100 H (70-99) mg/dl Calcium 8.2 L (8.5-10.1) mg/dl
--- NOTE | 2020-03-01 15:55 | Discharge Summary ---
Date of Service March 01, 2020 Discharge Data Consultations 02/29/20 11:19 Consult Case Management - Discharge Planning Routine Procedures Performed Operation Date: 02/29/20 07:00 Actual Procedures p Removal Distal Interlocking Screws Right Femur,(Right) - Alek Tan MD s Profolactic Rodding Left Femur(Left) - Alek Tan MD Hospital Course (1) Painful orthopaedic hardware: Patient was admitted to [facility] to undergo a distal interlocking screws of her right femur and a prophylactic rodding of her left femur for her stress fracture. Her surgery was perform a spinal anesthesia. She tolerated the procedure well without any intraoperative complications. She was given IV Ancef for surgical prophylaxis. Intraoperative x-rays were taken to confirm hardware removal and I am rodding of her left femur. Postoperatively she was allowed out of bed, weightbearing as tolerated bilateral lower extremities. Physical therapy and occupational therapy consult was placed for evaluation after surgery. Her pain was well-controlled after surgery with oral Tylenol and tramadol. She did have a little nausea on postoperative day one due to taking pain medication on an empty stomach. This was treated with Zofran. She tolerated a regular diet. She was safe with ambulating in her room and also with the physical therapist. Her surgical dressings were intact, clean and dry. Instructions were provided for dressing change one at home. Case management was consulted for disposition needs. She was instructed to use a walker to assist with ambulation. She did have one of these at home. She will start outpatient therapy on Friday, March 06, 2020. Vital signs remained stable during her inpatient stay. Postoperative laboratory work was stable after surgery. She was placed on Lovenox 40 mg daily for DVT prophylaxis. She will then resume her throughout her on Friday evening. AV impulse boots were also used when in bed. She was deemed safe for discharge to her home. She was discharged to her home in stable condition on March 01, 2020. All questions were answered. Discharge instructions were provided. (2) Stress fracture, left femur, initial encounter for fracture: Discharge Instructions DIET: * Resume previous diet. MEDICATIONS: * Please take your prescriptions as instructed at your pre-op appointment and/or see medication discharge instructions listed above. * Tramadol 1-2 tabs every 6 hours as needed for pain * Lovenox 40 mg SQ daily x 4 days. Then resume Xarelto 20mg on Friday evening. Once Xarelto resumed, please stop taking the Lovenox. * If concerns develop, call your physician's office at . SPECIAL CARE INSTRUCTIONS: * Ice to either right or left knee/thigh as needed. * elevate bilateral upper extremities as needed for swelling. * Alan stockings on both legs, on during the day, off at night. * You may change your dressing on Friday. Okay to remove dressing and shower, let soap and water run over incisions, pat incisions dry and redress wounds with light dressing or band-aids. * Use walker to assist with ambulation. * You may bear weight as tolerated on both lower extremities. * You are allowed to do range of motion all joints of your legs as tolerated and instructed by physical therapy. * Your surgical extremity may be discolored due to prepping agents used on the skin. A bluish-green tint is a normal variant and should not cause alarm. Call your doctor at [phone] if: * Temperature above 101 degrees * Pain not relieved by pain medicine ordered * There is increased drainage or redness from any incision * You have any unanswered questions, problems or concerns. FOLLOW UP VISIT: * If not already scheduled, please call the office at to schedule a follow-up appointment. * Call our office with any questions or concerns. If you have wound drainage, please let our office know.
== END 2020-03-01 14:48 | disposition home or self-care (01) | DRG 482 ==
LOC: ASU 05:23 → 3E 05:23 → OBSVTOIN 10:25